=== PATIENT | female | born 1975 | race Caucasian/White ===

== ENCOUNTER 2021-05-04 10:02 | Emergency (ER) | payer MEDICARE, SELFPAY ==
[2021-05-04] VITALS (7 sets, daily range): BP systolic 100–137; BP diastolic 60–91; PULSE 82–95; RESP 16–22; TEMP 36.8–38.6; O2SAT 97–98; BMI 24.7
--- NOTE | 2021-05-04 10:21 | CT_ITS ---
PROCEDURE: CT ABDOMEN PELVIS W CON CLINICAL INDICATION: RLQ abd pain, fever COMPARISON: No exams were available for comparison TECHNIQUE: IV Contrast: 75ML Isovue 370 Oral Contrast None Axial images obtained with sagittal and coronal reformats. All CT scans at the facility use one or more dose reduction, viz: automated exposure control, ma/kV adjustment per patient size (including targeted exams where dose is matched to indication, i.e. head), or iterative reconstruction technique. FINDINGS: Lung bases are normal. Minimal diffuse fatty infiltration of the liver. No focal liver or splenic lesion. Gallbladder pancreas and adrenal glands are normal. There are mild inflammatory changes and a small focus of low-attenuation associated with the upper pole of the left kidney suggesting changes of left pyelonephritis. Repeat CT abdomen in 1 month is recommended to ensure resolution. Right kidney is normal. There is no upper abdominal lymphadenopathy. Minimal calcification of the abdominal aorta without aneurysm. Appendix is normal. No distended large or small bowel or bowel wall thickening. 2.5 centimeter left adnexal cyst. No free intraperitoneal air or fluid in the abdomen or pelvis. Bladder is normal. No inguinal or femoral hernia. No enlarged iliac or inguinal chain lymph nodes. No acute bony abnormality. Mild degenerative change of the lower lumbar spine is present. Moderate amount of stool noted in the colon. IMPRESSION: Mild inflammatory changes and small focus of low-attenuation associated with the upper pole the left kidney suggesting changes of mild left pyelonephritis. Repeat CT abdomen in 1 month is recommended to ensure resolution. Normal appendix. No free intraperitoneal air or fluid. Minimal diffuse fatty infiltration of the liver. 2.5 centimeter left adnexal cyst. Moderate amount of stool in the colon. Dictated by: Sabino Bonds 05/04/2021 11:47 Sabino Bonds in [facility] 05/04/2021 11:47
--- NOTE | 2021-05-04 10:30 | HMH.EDABDPAI ---
ED Disposition Clinical Impression: Pyelonephritis, Gastroenteritis Disposition: Home, Self-Care Condition on Discharge: Good Instructions: DI for Acute Abdominal Pain Prescriptions: Cefdinir [Omnicef 300mg Capsule] 300 mg PO BID #14 cap Prescription Printed Referrals: Provider,Referral, [Primary Care Provider] - - Critical Care Critical Care Time: No Attestation: On 05/04/21, the high probability of a clinically significant, sudden or life threatening deterioration of the following system(s) required my full and direct attention, intervention and personal management. The time I documented below is in addition to time spent performing reported procedures but includes the following listed in this critical care notation. Medical Decision Making - Medical Records Medical records reviewed: Yes: I reviewed the patient's medical records. - Wade Inquiry Pt receiving controlled substance: No Vital Signs: 05/04/21 10:03 05/04/21 10:30 05/04/21 11:00 Temperature 101.5 F H Temperature Source Oral Pulse Rate 95 H 95 H Pulse Rate [Radial] 95 H Respiratory Rate 22 16 Blood Pressure 137/83 123/76 Blood Pressure [Right Arm] 124/91 H Blood Pressure Mean [Right Arm] 102 Blood Pressure Position Sitting Sitting Blood Pressure Position [Right Arm] Sitting 02 Sat by Pulse Oximetry 98 97 98 Oxygen Delivery Method Room Air Room Air Room Air 05/04/21 12:00 05/04/21 12:30 05/04/21 13:00 Temperature 98.3 F Temperature Source Pulse Rate 85 82 82 Pulse Rate [Radial] Respiratory Rate 16 16 16 Blood Pressure 111/60 100/62 L 110/64 Blood Pressure [Right Arm] Blood Pressure Mean [Right Arm] Blood Pressure Position Sitting Sitting Sitting Blood Pressure Position [Right Arm] 02 Sat by Pulse Oximetry 98 98 98 Oxygen Delivery Method Room Air Room Air Room Air 05/04/21 13:36 Temperature 98.3 F Temperature Source Oral Pulse Rate 83 Pulse Rate [Radial] Respiratory Rate 16 Blood Pressure 113/68 Blood Pressure [Right Arm] Blood Pressure Mean [Right Arm] Blood Pressure Position Sitting Blood Pressure Position [Right Arm] 02 Sat by Pulse Oximetry Oxygen Delivery Method Room Air - Lab Data Lab results reviewed: Yes: I reviewed the patient's lab results. Lab Results 05/04/21 10:15: WBC 15.4 H, RBC 4.95, Hgb 15.0, Hct 43.7, MCV 88.2, MCH 30.3, MCHC 34.3, RDW 12.5, Plt Count 276, MPV 8.0, Neut % (Auto) 81.8 H, Lymph % (Auto) 9.7 L, [place] % (Auto) 7.8, Eos % (Auto) 0.5, Baso % (Auto) 0.2, Neut # (Auto) 12.6 H, Lymph # (Auto) 1.5, [place] # (Auto) 1.2 H, Eos # (Auto) 0.1, Baso # (Auto) 0.0, Total Counted 100, Neutrophils % (Manual) 82 H, Lymphocytes % (Manual) 9 L, Monocytes % (Manual) 9, Platelet Estimate Normal, RBC Morphology Normal 05/04/21 10:15: Sodium 136, Potassium 3.2 L, Chloride 101, Carbon Dioxide 27, Anion Gap 11.2, BUN 4 L, Creatinine 0.80, Estimated Creat Clear 87, Estimated GFR 77, Est GFR ( Amer) 93, Glucose 86, Calcium 8.8, Total Bilirubin 0.5, AST 18, ALT 10 L, Alkaline Phosphatase 74, Total Protein 7.6, Albumin 4.5, Globulin 3.1, Albumin/Globulin Ratio 1.5 05/04/21 10:15: Lipase 68 05/04/21 11:00: Urine Color Yellow, Urine Appearance Sl cloudy, Urine pH 6.5, Ur Specific [place] 1.025, Urine Protein Negative, Urine Glucose (UA) Negative, Urine Ketones Negative, Urine Blood Trace-i, Urine Nitrate Positive, Urine Bilirubin Negative, Urine Urobilinogen 0.2, Ur Leukocyte Esterase Negative, Urine RBC 3-5, Urine WBC None, Ur Squamous Epith Cells None, Urine Bacteria None 05/04/21 11:00: Urine HCG, Qual Negative Result diagrams: 05/04/21 10:15 05/04/21 10:15 Orders (Tests/Meds): ED MEDICATIONS Discontinued Medications Generic Name Dose Route Start Last Admin Trade Name Freq PRN Reason Stop Dose Admin Sodium Chloride 1,000 mls @ 999 mls/hr 05/04/21 10:30 Sod Chlor 0.9% 1000ml Bag IV 05/04/21 11:30 .Q1H1M LETITIA Sodium Chloride 1,000 mls @ 500 mls/hr
[2021-05-04 10:41] LABS: Basophils % 0.2 % (0.1-2.0); Eosinophils # 0.1 K/mm3 (0.0-0.4); Eosinophils % 0.5 % (0.1-12.0); Hematocrit 43.7 % (37.0-47.0); Lymphocytes # 1.5 K/mm3 (0.7-4.5); Lymphocytes % 9.7 % (10-50); Mean Corpuscular HGB Conc 34.3 g/dL (31.8-35.4); Mean Corpuscular Hemoglobin 30.3 pg (27.0-31.2); Mean Corpuscular Volume 88.2 fl (81-99); Monocytes # 1.2 K/mm3 (0.1-1.0); Monocytes % 7.8 % (1.7-9.3); Neutrophils # 12.6 K/mm3 (1.8-7.8); Neutrophils % 81.8 % (37.0-80.0); Platelet Count 276 K/mm3 (142-424); Red Blood Count 4.95 M/mm3 (4.20-5.40); Red Cell Distribution Width 12.5 % (11.5-17.5); White Blood Count 15.4 K/mm3 (4.8-10.8)
[2021-05-04 10:43] LABS: MANUAL DIFFERENTIAL MANUAL DIFFERENTIAL (MANUAL DIFF)
[2021-05-04 10:50] LABS: Chloride 101 mmol/L (98-107); Potassium 3.2 mmoL/L (3.5-5.1); Sodium 136 mmol/L (136-145)
[2021-05-04 10:52] LABS: Alanine Aminotransferase 10 U/L (12-78); Alkaline Phosphatase 74 U/L (38-126); Anion Gap 11.2 mEq/L (5-15); Aspartate Amino Transferase 18 U/L (14-36); Bilirubin,Total 0.5 mg/dl (0.2-1.3); Blood Urea Nitrogen 4 mg/dl (7-17); Carbon Dioxide 27 mmol/L (22.0-30.0); Creatinine Clearance Estimated 87 mL/min (50-200); Estimated Glomerular Filt Rate 77 ml/min (>60); GFR (African American) 93 ML/MIN (>60)
[2021-05-04 10:53] LABS: Albumin Level 4.5 g/dl (3.5-5.0); Albumin/Globulin Ratio 1.5 (1.1-1.8); Calcium 8.8 mg/dl (8.4-10.2); Globulin 3.1 g/dL (1.3-3.2); Glucose 86 mg/dl (74-100); Lipase 68 U/L (23-300); Total Protein,Serum 7.6 g/dl (6.3-8.2)
[2021-05-04 11:01] LABS: Microscopic, Urine URINE MICROSCOPIC (MICROSCOPIC)
[2021-05-04 11:11] LABS: Lymphocytes % 9 % (10-50); Monocytes % 9 % (2-9); Neutrophils % 82 % (42-76); Total Cells Counted 100
[2021-05-04 11:12] LABS: Platelet Estimate Normal; RBC Morphology Normal
[2021-05-04 11:25] LABS: Appearance,Urine SL CLOUDY (Clear); Bilirubin,Urine Negative (Negative); Blood, Urine TRACE-I (Negative); Color,Urine YELLOW (Yellow); Glucose,Urine (UA) Negative (Negative); Ketones,Urine Negative (Negative); Leukocyte Esterase,Urine Negative (Negative); Nitrate,Urine POSITIVE (Negative); PH,Urine 6.5 (5.0-8.5); Protein,Urine Negative (Negative); Specific Gravity, Urine 1.025 (1.005-1.030); Urobilinogen,Urine 0.2 EU/dl (0.2)
[2021-05-04 11:28] LABS: Urine Pregnancy, HCG Qual. Negative (Negative)
== END 2021-05-04 13:38 | disposition home or self-care (01) ==
PROVIDERS: Emergency Provider Emergency Medicine
DX: N12 Tubulo-interstitial nephritis, not specified as acute or chronic (principal); K52.9 Noninfective gastroenteritis and colitis, unspecified
CPT/HCPCS: 74177; 80053; 81001; 81025; 83690; 85007; 85025; 96365; 96375; 99283; J2405; Q9967

== ENCOUNTER → 2021-05-07 13:33 | Outpatient (CLI) | payer MEDICARE, SELFPAY ==
--- NOTE | 2021-05-07 13:33 | US_ITS ---
PROCEDURE: US TRANSVAGINAL CLINICAL INDICATION: pelvic pain COMPARISON: No exams were available for comparison FINDINGS: UTERUS: 9 cm x 5cmx 4cm with a combined endometrial thickness of 9.6mm LEFT OVARY: [id number] with a volume of 16.1ml. RIGHT OVARY: 2cmx [id number] with a volume of 5.8ml. 3.5 centimeter simple cyst on the left ovary. Normal vascular flow to both ovaries. Right ovary is normal. No free fluid in the posterior cul-de-sac or pelvis. Single small cervical nabothian cyst. 2-3 centimeter fundal uterine fibroid is present. IMPRESSION: 2-3 centimeter fundal uterine fibroid. 3.5 centimeter simple appearing left ovarian cyst. Single small cervical nabothian cyst. Dictated by: Sabino Bonds MD 05/07/2021 16:18 Sabino Bonds MD in [facility] 05/07/2021 16:18
== END ==
LOC: RAD 13:33
PROVIDERS: PCP Emergency Medicine; Visit Provider Obstetrics & Gynecology
DX: R10.9 Unspecified abdominal pain (principal); R10.2 Pelvic and perineal pain
CPT/HCPCS: 76830

== ENCOUNTER → 2021-06-08 09:41 | Outpatient (CLI) | payer MEDICARE, SELFPAY ==
--- NOTE | 2021-06-08 09:41 | CT_ITS ---
PROCEDURE: CT ABDOMEN PELVIS W CON CLINICAL INDICATION: pyelonephritis COMPARISON: CT CT ABDOMEN PELVIS W CON from 05/04/2021 TECHNIQUE: 75 mL of Isovue 370 was administered. Axial images obtained with sagittal and coronal reformats. All CT scans at the facility use one or more dose reduction, viz: automated exposure control, ma/kV adjustment per patient size (including targeted exams where dose is matched to indication, i.e. head), or iterative reconstruction technique. FINDINGS: LOWER THORAX: Unremarkable HEPATOBILIARY: Liver: No focal hepatic lesions. Gallbladder: The gallbladder is unremarkable Biliary: No intrahepatic or extrahepatic ductal dilation. PANCREAS: No focal masses or ductal dilatation. SPLEEN:No splenomegaly. ADRENALS:No adrenal nodules. KIDNEYS/URETERS/BLADDER: No hydronephrosis, stones, or solid mass lesions are seen in the visualized portions of the kidneys.There is minor cortical irregularity noted in the superior pole of the left kidney, may represent minor scarring. Bilateral renal parenchymal enhancement is symmetric and within normal limits. PERITONEUM / RETROPERITONEUM: No free air or fluid. Peritoneum LYMPH NODES: No free air or fluid. GI TRACT: No distention, wall thickening, or inflammatory stranding. Minor fecal retention of the colon is noted.Appendix is normal VASCULAR: Minor atherosclerotic vascular calcification is noted. The aorta is normal in caliber, without evidence of abdominal aortic aneurysm or dissection. ABDOMINAL WALL: Intact SOFT TISSUES: Unremarkable. BONES: Unremarkable. IMPRESSION: Minor cortical scarring in the left kidney. Otherwise unremarkable kidneys. No abnormal enhancement is noted. No acute intra-abdominal abnormality. Dictated by: Jazzy Mcmahan 06/08/2021 10:29 Jazzy Mcmahan in [facility] 06/08/2021 10:29
== END ==
LOC: RAD 09:41
PROVIDERS: PCP Emergency Medicine; Visit Provider Obstetrics & Gynecology
DX: N12 Tubulo-interstitial nephritis, not specified as acute or chronic (principal)
CPT/HCPCS: 74177; Q9967

== ENCOUNTER → 2021-07-08 08:48 | Outpatient (CLI) | payer MEDICARE, SELFPAY ==
[2021-07-08 09:01] LABS: Basophils # 0.1 K/mm3 (0-0.2); Basophils % 0.9 % (0.1-2.0); Eosinophils # 0.3 K/mm3 (0.0-0.4); Eosinophils % 2.9 % (0.1-12.0); Hematocrit 40.4 % (37.0-47.0); Hemoglobin 13.6 g/dL (12.2-16.2); Lymphocytes # 3.4 K/mm3 (0.7-4.5); Lymphocytes % 33.2 % (10-50); Mean Corpuscular HGB Conc 33.8 g/dL (31.8-35.4); Mean Corpuscular Hemoglobin 29.5 pg (27.0-31.2); Mean Corpuscular Volume 87.4 fl (81-99); Mean Platelet Volume 8.7 fl (7.4-10.4); Monocytes # 0.5 K/mm3 (0.1-1.0); Monocytes % 5.2 % (1.7-9.3); Neutrophils # 5.9 K/mm3 (1.8-7.8); Neutrophils % 57.8 % (37.0-80.0); Platelet Count 285 K/mm3 (142-424); Red Blood Count 4.62 M/mm3 (4.20-5.40); Red Cell Distribution Width 13.5 % (11.5-17.5); White Blood Count 10.2 K/mm3 (4.8-10.8)
[2021-07-08 09:39] LABS: HCG,Quantitative < 2 mIU/ml (0-5.42)
== END ==
PROVIDERS: Visit Provider Obstetrics & Gynecology
DX: Z34.90 Encounter for supervision of normal pregnancy, unspecified, unspecified trimester (principal); S01.81XA Laceration without foreign body of other part of head, initial encounter
CPT/HCPCS: 36415; 84702; 85025

== ENCOUNTER 2021-07-16 14:51 | Emergency (ER) | payer MEDICARE, SELFPAY ==
[2021-07-16 16:30] VITALS: BP 137/75; PULSE 72; RESP 20; TEMP 36.7; O2SAT 98; BMI 24.7
--- NOTE | 2021-07-16 17:14 | HMH.EDUTC ---
[facility] [place] Disposition Clinical Impression: Viral syndrome, Exposure to COVID-19 virus Disposition: Home, Self-Care Condition on Discharge: Good Instructions: DI for COVID-19 (Suspected or Confirmed ), Preventing the Spread of Coronavirus Discharge Instructions Additional Instructions: Drink plenty of fluids. Take tylenol for pain or fever. Return if you begin to have difficulty breathing. Follow up with your regular doctor. GO TO THE ER FOR ANY WORSENING SYMPTOMS Quarantine until you know the results of your covid-19 test. If it is positive, the health department should call you and give you further instructions about your length of Quarantine and other things. Notify your school or workplace of your results and follow their instructions regarding return to work/school. Prescriptions: Promethazine/Dextromethorphan [Promethazine-Dm Syrup] 5 ml PO Q6HP PRN #240 syrup PRN Reason: Cough Transmission Status: Received by [facility] Ondansetron [Zofran 4mg ODT] 4 mg PO Q8HP PRN #20 tab.rapdis PRN Reason: Nausea Transmission Status: Received by [facility] Azithromycin [Z-Román 250mg Tab*] 250 mg PO UD DOSE PK #6 tab Transmission Status: Received by [facility] Referrals: Woo Stephen MD [Primary Care Provider] - Forms: Work/School Release Time of Disposition: 17:42 Medical Decision Making - Medical Records Medical records reviewed: No: I reviewed the patient's medical records. - Wade Inquiry Pt receiving controlled substance: No Vital Signs: 07/16/21 16:30 07/16/21 17:28 Temperature 98.0 F 98.0 F Temperature Source Oral Pulse Rate 72 Pulse Rate [Right Brachial] 72 Respiratory Rate 20 20 Blood Pressure 137/75 Blood Pressure [Right Arm] 137/75 Blood Pressure Mean [Right Arm] 95 Blood Pressure Source [Right Arm] Automatic Cuff Blood Pressure Position [Right Arm] Sitting 02 Sat by Pulse Oximetry 98 Oxygen Delivery Method Room Air - Lab Data Lab results reviewed: Yes: I reviewed the patient's lab results. Lab Results 07/16/21 17:21: Strep Scn Rapid Clinic Negative Orders (Tests/Meds): ORDERS Category Date Time Status Strep Screen Confirmation Stat Micro 07/16/21 17:21 Received [facility] [place] HPI - General Stated complaint: covid exposure, symptoms Time Seen by Provider: 07/16/21 17:14 Mode of Arrival: Ambulatory Source of Information: Patient Limitations: No Limitations Description of Symptoms (Recalled from Triage Doc. by RN): PATIENT C/O VOMITING, DIARRHEA, CHILLS, HEADACHE, AND WEAKNESS X 2 DAYS. EXPOSURE TO COVID HEENT Symptoms (Recalled from RN notes): Yes Resp Symptoms (Recalled from RN notes): No Skin Symptoms (Recalled from RN notes): No MS Symptoms (Recalled from RN notes): No Functional Status (Recalled from RN notes): WNL - History of Present Illness Provider Complaint: She reports that for the past 2 days she has felt very bad, had body aches, cough, congestion, and a head ache. She has not been vaccinated against covid-19. - Related Data Previous Rx's Medication Instructions Recorded prenat.vits,jose,vcq-umvs-exugc 1 tab PO DAILY #30 tab 07/08/21 Azithromycin [Z-Román 250mg Tab*] 250 mg PO UD DOSE PK #6 tab 07/16/21 Ondansetron [Zofran 4mg ODT] 4 mg PO Q8HP PRN #20 tab.rapdis 07/16/21 Promethazine/Dextromethorphan 5 ml PO Q6HP PRN #240 syrup 07/16/21 [Promethazine-Dm Syrup] Allergies Allergy/AdvReac Type Severity Reaction Status Date / Time No Known Allergies Allergy Verified 07/16/21 16:54 - Worker's Comp Is this a Worker's Comp case?: No [facility] History - Hepatitis A Screen Drug use history?: No High risk sexual behaviors?: No History of sexually transmitted infection?: No Currently employed?: No Childcare worker?: No Do you have indoor plumbing?: Yes Do you have electricity?: Yes Attestation statement:: This patient has been screened for Hepatitis A risk factors. I have reviewed
[2021-07-16 17:28] VITALS: BP 137/75; PULSE 72; RESP 20; TEMP 36.7; O2SAT 98
[2021-07-16 17:49] LABS: UTC Strep Screen (Rapid) Negative (Negative)
--- NOTE | 2021-07-17 10:20 | PC.NURSE ---
relayed message to patient that she is positive
== END 2021-07-16 17:56 | disposition home or self-care (01) ==
PROVIDERS: Emergency Provider Nurse Practitioner Family; PCP Emergency Medicine
DX: U07.1 COVID-19 (principal); Z87.891 Personal history of nicotine dependence
CPT/HCPCS: G0463; 87880; 99203; U0003

== ENCOUNTER → 2021-09-17 08:39 | Outpatient (CLI) | payer MEDICARE, SELFPAY ==
--- NOTE | 2021-09-17 08:39 | US_ITS ---
PROCEDURE: US TRANSVAGINAL CLINICAL INDICATION: repeat Heavy bleeding COMPARISON: US US TRANSVAGINAL from 05/07/[address] ABDOMEN PELVIS W CON from 06/08/2021 FINDINGS: UTERUS: 9cm x 6cmx 4cm with a combined endometrial thickness of 14mm. There is some heterogeneous echogenicity in the fundus of the uterus. LEFT OVARY: 2dfh3gvj8.5cm with a volume of 18.9ml. 3 x 2 cm simple appearing left ovarian cyst. RIGHT OVARY: [id number] with a volume of 5ml. No cul-de-sac fluid. IMPRESSION: Thickened endometrium at 14 mm. There is some heterogeneous echogenicity in the fundus of the uterus possibly due to fibroid involvement. 3 cm simple appearing left ovarian cyst not significantly changed. Dictated by: Nicholas Vera MD 09/20/2021 08:24 Nicholas Vera MD in [facility] 09/20/2021 08:24
== END ==
LOC: RAD 08:39
PROVIDERS: PCP Emergency Medicine; Visit Provider Obstetrics & Gynecology
DX: D25.9 Leiomyoma of uterus, unspecified (principal); N83.209 Unspecified ovarian cyst, unspecified side
CPT/HCPCS: 76830

== ENCOUNTER → 2021-10-06 08:24 | Outpatient (CLI) | payer MEDICARE, SELFPAY | PROVIDERS: PCP Emergency Medicine; Visit Provider Nurse Practitioner | DX: Z20.822 Contact with and (suspected) exposure to COVID-19 (principal) | CPT/HCPCS: C9803; U0003; U0005 ==

== ENCOUNTER → 2021-10-23 13:03 | Outpatient (CLI) | payer MEDICARE, SELFPAY ==
[2021-10-23 13:30] LABS: Basophils # 0.1 K/mm3 (0-0.2); Basophils % 1.2 % (0.1-2.0); Eosinophils # 0.2 K/mm3 (0.0-0.4); Eosinophils % 3.1 % (0.1-12.0); Hematocrit 28.6 % (37.0-47.0); Hemoglobin 8.1 g/dL (12.2-16.2); Lymphocytes # 1.7 K/mm3 (0.7-4.5); Mean Corpuscular HGB Conc 28.4 g/dL (31.8-35.4); Mean Corpuscular Hemoglobin 22.8 pg (27.0-31.2); Mean Corpuscular Volume 80.5 fl (81-99); Mean Platelet Volume 9.2 fl (7.4-10.4); Monocytes # 0.6 K/mm3 (0.1-1.0); Monocytes % 10.2 % (1.7-9.3); Neutrophils # 3.6 K/mm3 (1.8-7.8); Neutrophils % 58.5 % (37.0-80.0); Platelet Count 365 K/mm3 (142-424); Red Blood Count 3.56 M/mm3 (4.20-5.40); Red Cell Distribution Width 14.2 % (11.5-17.5); White Blood Count 6.2 K/mm3 (4.8-10.8)
[2021-10-23 13:44] LABS: Urine Pregnancy, HCG Qual. Negative (Negative)
[2021-10-23 15:10] LABS: Chloride 107 mmol/L (98-107); Potassium 4.2 mmoL/L (3.5-5.1); Sodium 140 mmol/L (136-145)
[2021-10-23 15:13] LABS: Alanine Aminotransferase 8 U/L (12-78); Albumin/Globulin Ratio 1.7 (1.1-1.8); Alkaline Phosphatase 65 U/L (38-126); Anion Gap 11.2 mEq/L (5-15); Aspartate Amino Transferase 20 U/L (14-36); Blood Urea Nitrogen 9 mg/dl (7-17); Carbon Dioxide 26 mmol/L (22.0-30.0); Estimated Glomerular Filt Rate 77 ml/min (>60); GFR (African American) 93 ML/MIN (>60); Globulin 2.4 g/dL (1.3-3.2); Total Protein,Serum 6.4 g/dl (6.3-8.2)
[2021-10-23 15:14] LABS: Calcium 8.7 mg/dl (8.4-10.2); Glucose 90 mg/dl (74-100)
[2021-10-23 15:18] LABS: Bilirubin,Total 0.1 mg/dl (0.2-1.3)
== END ==
PROVIDERS: Visit Provider Obstetrics & Gynecology
DX: Z01.812 Encounter for preprocedural laboratory examination (principal); N93.8 Other specified abnormal uterine and vaginal bleeding
CPT/HCPCS: 36415; 80053; 81025; 85025; C9803; U0003; U0005

== ENCOUNTER 2021-10-25 07:16 | Day surgery (SDC) | payer MEDICARE, SELFPAY ==
[2021-10-22 08:02] VITALS: BMI 24.7
[2021-10-25] VITALS (10 sets, daily range): BP systolic 98–121; BP diastolic 52–78; PULSE 76–93; RESP 16–18; TEMP 36.3–36.8; O2SAT 92–98
--- NOTE | 2021-10-25 06:48 | SUR.PREOP ---
Notified Khurram ARELLANO r/t patients H&H. Debra stated okay to proceed with surgery.
--- NOTE | 2021-10-25 08:20 | HMH.ANESCL ---
[facility] Anesthesia Checklist - Patient Identification Patient Identification: Arm Band, Verbal (Name & ) - Structural Data Admitted From: Home Planned Operative Procedure/s: Hysteroscopy Consent for Planned Operative Procedure(s) Verified: Yes Verified Documents: Surgical Consent - NPO Status Verified Time NPO: 00:00 - Chart Verification Results Verified: CBC, HCG - Additional verifications Anesthesia Reactions: No Hx Blood Transfusions: No Blood Transfusion Reaction: No - Cardiovascular Assessment Heart Sounds: S1 & S2 - Airway Assessment C-Spine Mobility Assessed: Yes TMJ Mobility Assessed: Yes Dentition: Dentures-good fit - Neurological Assessment Level of Consciousness: Awake, Alert, Appropriate - Anesthesia Plan Anesthesia Risk discussed: Yes ASA Class: II Anesthesia Type: General [facility] History I have reviewed the patient's past medical history: Yes Medical History: Denies:: Cancer, Diabetes Mellitus Type 1, Diabetes Mellitus Type 2, Internal Pacemaker, MRSA, Seizures *Have you ever received a pneumonia vaccine?: No *Have you received a flu vaccine this season?: Yes Other Medical History: Denies: Blood Transfusion Reaction Anesthesia experience/problems:: none Other Surgeries: No: Pacemaker Amputation: No Fractures: No - *Social History Last grade of school completed: High school graduate Smoking Status: Current every day smoker Tobacco Type: cigarettes # Packs/Day (cigarettes): 1 Alcohol Intake: never Substance Use Type: denies use *Occupational Status:: unemployed Housing: house Household Members: significant other, children *Travel in the last 8 weeks: None Family Hx:: Cancer, Heart Attack, Stroke
--- NOTE | 2021-10-25 09:42 | HMH.ANESI ---
[facility] Anesthesia Record Part I Intake, IV Amount: 1,000 Estimated blood loss (mL): 10 Urine output (mL): 0 Blood Pressure: 98/68 SaO2: 95 Pulse Rate: 77 Respiratory Rate: 16 Temperature: 98 F Patient is:: Drowsy, Stable Stable to PACU at:: 09:40
--- NOTE | 2021-10-25 10:12 | SUR.PHASEI ---
1011- detailed report given to caden thompson in post op. Pt left in stable condition at this time
--- NOTE | 2021-10-25 11:07 | P.PN_ITS ---
[facility] Anesthesia Record Part II Discharge Time: 10:10 Destination: Surgical Day Care (OP Surgery) PACU nurse assessment reviewed?: Yes Patient Condition:: Good Anesthesia Complications:: None Swallowing reflex intact?: Yes Cyanosis?: No Blood Pressure: 116/70 Pulse Rate: 77 Temperature: 97.8 F Mental Status: Alert & Oriented Pain level:: 0 Nausea and/or vomitting:: None Intake, IV Amount: 0
--- NOTE | 2021-10-25 13:00 | HMH.OPNOTE ---
Date of procedure: 10/25/21 Pre-op Diagnosis:: Heavy menstrual bleeding Dysfunctional uterine bleeding Post-op Diagnosis:: same Procedure performed:: D&C Hysteroscopy with Myosure polypectomy Surgeon:: Moira Mcnally MD TOE CLOSING MACHINE TENDER:: Other Anesthesia: GETA Estimated blood loss (mL): 5 Operative findings:: diffuse shaggy endometrium thoughout uterine cavity anterior cavitary lesion consistent with endometrial polyp Operative note:: The patient was taken to the OR and general anesthesia administered without difficulty. She was prepped/draped in lithotomy position. The cervix was dilated and hysteroscopic evaluation performed. Diffuse, shaggy endometrium was visualized within the endometrial cavity. A small lesion consistent with an endometrial polyp was noted on the anterior cavity wall. The Myosure was used to excise this lesion and to sample endometrial tissue throughout the cavity. Once this was completed, all instruments were removed from her uterus and vagina. She was taken out of lithotomy position, awakened from anesthesia and taken to the PACU in stable condition. All sponge, needle & instrument counts correct. EBL 5cc. Condition: stable Disposition: PACU Specimens:: endometrial curettings Complications:: none
== END 2021-10-25 10:41 | disposition home or self-care (01) ==
LOC: OR 07:18
PROVIDERS: PCP Emergency Medicine; Visit Provider Obstetrics & Gynecology
DX: N93.8 Other specified abnormal uterine and vaginal bleeding (principal); R93.89 Abnormal findings on diagnostic imaging of other specified body structures; N84.0 Polyp of corpus uteri; Z72.0 Tobacco use; Z80.9 Family history of malignant neoplasm, unspecified; Z82.3 Family history of stroke
CPT/HCPCS: 58563; 88305; 96374; J2405

== ENCOUNTER 2022-07-18 17:28 | Emergency (ER) | payer MEDICARE, SELFPAY ==
[2022-07-18 19:25] VITALS: BP 131/86; PULSE 90; RESP 22; TEMP 36.8; O2SAT 97; BMI 26.5
--- NOTE | 2022-07-18 20:00 | EXP.UTC ---
Discharge Plan Disposition Patient Disposition: Home, Self-Care Condition: Good Prescriptions Prescriptions: New ondansetron HCl 4 mg tablet 4 mg PO Q8H PRN (Reason: Nausea And Vomiting) 4 Days Qty: 12 0RF No Action prenat.vits,jose,bwh-mfqb-bqumr 1 EACH tablet 1 tab PO DAILY Referrals Follow up/Referrals: Woo Stephen MD [Primary Care Provider] - See instructions Activity Restrictions/Add. Instructions Additional Instructions/Restrictions: *Monitor Temp, Over the counter Motrin or Tylenol as directed/as needed Tylenol every 4 hours and Motrin every 6 hours (as long as your family doctor has told you that you can take it) for fever or pain. and straight to ER if unable to lower temp less than 101.0 after medication given *Warm salt water gargles may help to soothe the throat *Throat Lozenges? *Warm fluids like tea with honey may help to soothe the throat? *Sleep elevated *Humidifier/Vaporizer Follow up IMMEDIATELY for new or worsening symptoms or no Noticeable improvement over the next 48-72 hours. 911 for difficulty breathing or swallowing You were tested for today for COVID19 your test result should be back in the next 24-48 hours, you may may check your results on the [facility] Make sure to take your Vitamins Vit. C Vit D and Zinc if you can take them Clinical Impressions Clinical Impression: Viral syndrome, Encounter for laboratory testing for COVID-19 virus Stand Alone Forms Stand Alone Forms: Work/School Release Instructions Patient Instructions: DI for Viral Upper Respiratory Infection -- Adult, Coronavirus Disease 2019, Preventing the Spread of Coronavirus Discharge Instructions Discharge ED Provider: Morenita Dubois [facility] [place] [place] HPI General Stated complaint: covid test Mode of Arrival: Ambulatory Source of Information: Patient Limitations: No Limitations Time Seen by Provider: 07/18/22 20:00 Description of Symptoms (Recalled from Triage Doc. by RN): PATIENT C/O COUGH AND BODY ACHES SINCE YESTERDAY HEENT Symptoms (Recalled from RN notes): Yes Resp Symptoms (Recalled from RN notes): Yes Skin Symptoms (Recalled from RN notes): No MS Symptoms (Recalled from RN notes): No Functional Status (Recalled from RN notes): WNL History of Present Illness Provider Complaint: Patient states that several people at work have tested positive for COVID state that she has been having body aches, chills, n/v and headaches that started yesterday and has continued throughout today States that this evening she came in to get tested due to still having symptoms Related Data Home Medications Medication Instructions Recorded Confirmed prenat.vits,jose,uvk-bumu-eelkn 1 tab PO DAILY Supplement 10/22/21 10/25/21 Previous Rx's Medication Instructions Recorded ondansetron HCl 4 mg tablet 4 mg PO Q8H PRN Nausea And 07/18/22 Vomiting 4 days #12 tabs Allergies Allergy/AdvReac Type Severity Reaction Status Date / Time No Known Allergies Allergy Verified 10/25/21 07:31 Worker's Comp Is this a Worker's Comp case?: No PFSH PFSH Social History Smoking Status: Current every day smoker tobacco type: cigarettes packs per day: 1 second hand exposure: No alcohol intake: never substance use type: denies use current occupational status: other Travel in the last 8 weeks: None household members: significant other and children housing: house current occupational exposures/hazards: No caffeine: Yes ROS Obtained: Yes All systems reviewed & no additional complaints except as documented and Yes Systems reviewed as appropriate & no additional complaints except as documented Constitutional Constitutional: Reports system reviewed and no additional complaints, except as documented, Reports as per HPI, Reports body ache, Reports chills, Reports fatigue, Reports fever(s) and Reports headache(s) ENT Ears, Nose, Mouth, and Throat: Reports system reviewed and no add
[2022-07-18 20:05] VITALS: BP 131/86; PULSE 90; RESP 22; TEMP 36.8; O2SAT 97
== END 2022-07-18 20:10 | disposition home or self-care (01) ==
PROVIDERS: Emergency Provider Nurse Practitioner; PCP Emergency Medicine
DX: M79.10 Myalgia, unspecified site (principal); R05.9 Cough, unspecified; R68.83 Chills (without fever); R11.2 Nausea with vomiting, unspecified; R51.9 Headache, unspecified; Z20.822 Contact with and (suspected) exposure to COVID-19
CPT/HCPCS: 99212; C9803; G0463; U0003; U0005

== ENCOUNTER 2022-10-30 08:25 | Emergency (ER) | payer MEDICARE, SELFPAY ==
[2022-10-30] VITALS (9 sets, daily range): BP systolic 102–152; BP diastolic 46–97; PULSE 78–131; RESP 18–28; TEMP 37.6; O2SAT 92–100; BMI 26.5
--- NOTE | 2022-10-30 08:21 | ECG_ITS ---
APPROVED REPORT Exam: Resting ECG HR:109 bpm ECG Measurements Heart Rate 109 AXES NH 177 P 67 QRSd 80 QRS 94 QT 328 T 68 QTc 392 Conclusion SINUS TACHYCARDIA BORDERLINE RIGHT AXIS DEVIATION [QRS AXIS > 90] MINIMAL ST DEPRESSION [0.025+ mV ST DEPRESSION] ABNORMAL RHYTHM ECG UNCONFIRMED REPORT Electronically signed by : Walker Bradshaw MD 10/31/2022 19:59:40
--- NOTE | 2022-10-30 08:27 | XR_ITS ---
PROCEDURE INFORMATION: Exam: XR Chest Exam date and time: 10/30/2022 8:42 AM Age: 47 years old Clinical indication: Shortness of breath; Additional info: SOA TECHNIQUE: Imaging protocol: Radiologic exam of the chest. Views: 1 view. COMPARISON: CT ABDOMEN PELVIS W CON 06/08/2021 9:51 AM FINDINGS: Lungs: Unremarkable. No consolidation. Pleural spaces: Unremarkable. No pleural effusion. No pneumothorax. Heart/Mediastinum: Unremarkable. No cardiomegaly. Bones/joints: Unremarkable. IMPRESSION: No acute findings.
--- NOTE | 2022-10-30 08:29 | PC.NURSE ---
pt significant other stood up while doing the EKG and ask if that was allowed for the male doctor to be present with pt shirt up to perform a EKG for her chest pain. Instructed significant other that the male in the room was a twisting operator and medically we have them present. Ask the pt if that was ok for the male to be in the room. Pt verbalized that was ok. Continued with EKG with pt consent with male twisting operator at .
[2022-10-30 08:35] LABS: Coronavirus 19, PCR Not Detected (NotDetected); Influenza A, PCR Not Detected (NotDetected); Influenza B, PCR Not Detected (NotDetected)
--- NOTE | 2022-10-30 08:38 | HMH.EDGENADL ---
Discharge Plan Disposition Patient Disposition: Home, Self-Care Condition: Good Prescriptions Prescriptions: New doxycycline hyclate 100 mg capsule 100 mg PO BID 10 Days Qty: 20 0RF methylprednisolone [Medrol (Román)] 4 mg tablets,dose pack 4 mg PO DAILY Qty: 21 0RF ondansetron 4 mg tablet,disintegrating 4 mg PO Q8H PRN (Reason: nausea and vomiting) 4 Days Qty: 12 0RF Referrals Follow up/Referrals: Provider,Referral, MD [Referring] - See instructions Activity Restrictions/Add. Instructions Additional Instructions/Restrictions: You were evaluated in the emergency department today. At this time, we feel that your symptoms are due to pneumonia. Please product picker your prescriptions at the pharmacy. Use your inhaler every 4-6 hours as needed for wheezing and shortness of breath. Orally hydrate at home is much as possible. Return to the emergency department for any new or worsening symptoms. Follow-up with your primary care provider over the next 48 hours. Clinical Impressions Clinical Impression: Pneumonia Qualifiers: Pneumonia type: due to unspecified organism Laterality: left Lung location: upper lobe of lung Qualified Code(s): J18.9 - Pneumonia, unspecified organism Instructions Patient Instructions: Pneumonia-Adult Discharge ED Provider: Carly John General Adult HPI General Chief complaint: Chest Pain Stated complaint: chest pain Time Seen by Provider: 10/30/22 08:27 Mode of Arrival: Ambulatory Source of Information: Patient Limitations: No Limitations Description of Symptoms (Recalled from ER Triage Doc. by RN): c/o chest pain, cough, fever, SERRA and n/v for 3 days. Pt states the symptoms started with a SERRA and then the other symptoms followed. Pt took thermaflu around 1.30am and tylenol around 5am prior to arrival. History of Present Illness HPI narrative: This patient is a 47-year-old female who denies significant past medical history presented to the emergency department for evaluation of fever, headache, cough, nausea, vomiting, chest pain, and poor appetite. She reports that she initially developed a headache 3 days ago, and the other symptoms have followed.. She states that the chest pain has been intermittent and sharp on the left side of her chest, and nothing seems to make it better or worse. She took TheraFlu without significant improvement. She is also complaining of epigastric abdominal pain. She has noted that she has been wheezing. She is a smoker, she denies any history of respiratory issues and does not use inhalers. Related Data Previous Rx's Medication Instructions Recorded doxycycline hyclate 100 mg capsule 100 mg PO BID 10 days #20 caps 10/30/22 methylprednisolone 4 mg tablets in 4 mg PO DAILY #21 tabs 10/30/22 a dose pack (Medrol (Román)) ondansetron 4 mg disintegrating 4 mg PO Q8H PRN nausea and 10/30/22 tablet vomiting 4 days #12 tabs Allergies Allergy/AdvReac Type Severity Reaction Status Date / Time No Known Allergies Allergy Verified 10/25/21 07:31 [facility] Disclaimer: The information contained in this section may have been updated after the patient was seen, as this information can be updated by other users. Social History Smoking Status: Current every day smoker tobacco type: cigarettes packs per day: 1 second hand exposure: No alcohol intake: never substance use type: denies use current occupational status: other Travel in the last 8 weeks: None household members: significant other and children housing: house current occupational exposures/hazards: No caffeine: Yes ROS Obtained: Yes All systems reviewed & no additional complaints except as documented 14 point review of systems obtained and negative except as mentioned in HPI. Physical Exam General General appearance: alert and in no apparent distress Head Head exam: atraumatic and normocephalic Eye Eye exam: Present n
[2022-10-30 08:39] LABS: Basophils # 0.1 K/mm3 (0-0.2); Basophils % 0.9 % (0.1-2.0); Eosinophils # 0.2 K/mm3 (0.0-0.4); Eosinophils % 3.2 % (0.1-12.0); Hematocrit 34.3 % (37.0-47.0); Hemoglobin 10.5 g/dL (12.2-16.2); Lymphocytes # 1.2 K/mm3 (0.7-4.5); Lymphocytes % 17.6 % (10-50); Mean Corpuscular HGB Conc 30.8 g/dL (31.8-35.4); Mean Corpuscular Hemoglobin 20.4 pg (27.0-31.2); Mean Corpuscular Volume 66.4 fl (81-99); Mean Platelet Volume 8.1 fl (7.4-10.4); Monocytes # 0.4 K/mm3 (0.1-1.0); Monocytes % 5.9 % (1.7-9.3); Neutrophils # 5.1 K/mm3 (1.8-7.8); Neutrophils % 72.4 % (37.0-80.0); Platelet Count 386 K/mm3 (142-424); Red Blood Count 5.16 M/mm3 (4.20-5.40); Red Cell Distribution Width 16.7 % (11.5-17.5)
[2022-10-30 08:45] LABS: Chloride 106 mmol/L (98-107); Potassium 3.9 mmoL/L (3.5-5.1); Sodium 139 mmol/L (136-145)
[2022-10-30 08:47] LABS: Alanine Aminotransferase 15 U/L (12-78); Aspartate Amino Transferase 28 U/L (14-36); Blood Urea Nitrogen 9 mg/dl (7-17); Creatinine Clearance Estimated 104 mL/min (50-200); Estimated Glomerular Filt Rate 89 ml/min (>60); GFR (African American) 108 ML/MIN (>60)
[2022-10-30 08:48] LABS: Albumin Level 4.3 g/dl (3.5-5.0); Albumin/Globulin Ratio 1.4 (1.1-1.8); Alkaline Phosphatase 116 U/L (38-126); Anion Gap 10.9 mEq/L (5-15); Bilirubin,Total 0.2 mg/dl (0.2-1.3); Calcium 8.9 mg/dl (8.4-10.2); Carbon Dioxide 26 mmol/L (22.0-30.0); Glucose 93 mg/dl (74-100); Lipase 48 U/L (23-300); Total Protein,Serum 7.3 g/dl (6.3-8.2)
--- NOTE | 2022-10-30 08:53 | PC.NURSE ---
Significant other was stating that he thinks the pt has gallbladder issues, when the pt eats she throws up everything. Pt states if they go to [facility] to eat and then she will throw it up all the way home and she has pain that her gallbladder area. Pt states 20 years ago she was told she had sludge in her gallbladder but never had it checked since. MD mar
--- NOTE | 2022-10-30 08:55 | PC.NURSE ---
Pt placed on 2 L NC for 91 sat and feeling MD tray aware.
[2022-10-30 08:59] LABS: D-Dimer 0.95 ug/mL (0.0-0.5)
[2022-10-30 09:02] LABS: Troponin I < 0.01 ng/ml (0.00-0.034)
--- NOTE | 2022-10-30 09:16 | CT_ITS ---
PROCEDURE INFORMATION: Exam: CTA Chest With Contrast Exam date and time: 10/30/2022 9:31 AM Age: 47 years old Clinical indication: Shortness of breath; Additional info: SOA, elevated dimer TECHNIQUE: Imaging protocol: Computed tomographic angiography of the chest with contrast. 3D rendering (Not supervised by radiologist): MIP and/or 3D reconstructed images were created by the technologist. Radiation optimization: All CT scans at this facility use at least one of these dose optimization techniques: automated exposure control; mA and/or kV adjustment per patient size (includes targeted exams where dose is matched to clinical indication); or iterative reconstruction. Contrast material: ISOVUE; Contrast volume: 70 ml; Contrast route: INTRAVENOUS (IV); COMPARISON: CR XR CHEST PORTABLE 10/30/2022 8:42 AM FINDINGS: Pulmonary arteries: Negative for acute pulmonary embolism. Aorta: Unremarkable. No aortic aneurysm. No aortic dissection. Lungs: Bronchial wall thickening in the left upper lobe and right middle lobe, with some involvement of the left lower lobe. Patchy consolidation in the left upper lobe. Compatible with bronchitis/pneumonitis. Recommend follow-up to resolution. Pleural spaces: Unremarkable. No pneumothorax. No pleural effusion. Heart: Unremarkable. No cardiomegaly. No pericardial effusion. Lymph nodes: Mild mediastinal and hilar lymphadenopathy, likely reactive. Right paratracheal lymph node measures 1.2 cm in short axis. Bones/joints: Unremarkable. No acute fracture. Soft tissues: Unremarkable. Other findings: Previous granulomatous exposure. IMPRESSION: 1. Negative for acute pulmonary embolism. 2. Bronchial wall thickening in the left upper lobe and right middle lobe, with some involvement of the left lower lobe. Patchy consolidation in the left upper lobe. Compatible with bronchitis/pneumonitis. Recommend follow-up to resolution. 3. Mild mediastinal and hilar lymphadenopathy, likely reactive. Right paratracheal lymph node measures 1.2 cm in short axis.
--- NOTE | 2022-10-30 09:16 | CT_ITS ---
PROCEDURE INFORMATION: Exam: CT Abdomen With Contrast Exam date and time: 10/30/2022 9:31 AM Age: 47 years old Clinical indication: Abdominal pain; Generalized TECHNIQUE: Imaging protocol: Computed tomography of the abdomen with contrast. Radiation optimization: All CT scans at this facility use at least one of these dose optimization techniques: automated exposure control; mA and/or kV adjustment per patient size (includes targeted exams where dose is matched to clinical indication); or iterative reconstruction. Contrast material: ISOVUE; Contrast volume: 70 ml; Contrast route: IV; COMPARISON: CT ABDOMEN PELVIS W CON 06/08/2021 9:51 AM FINDINGS: Liver: Normal. No mass. Gallbladder and bile ducts: Normal. No calcified stones. No ductal dilation. Pancreas: Normal. No ductal dilation. Spleen: Normal. No splenomegaly. Adrenal glands: Normal. No mass. Kidneys and ureters: Normal. No hydronephrosis. Stomach and bowel: Visualized stomach and bowel are unremarkable. No obstruction. No mucosal thickening. Intraperitoneal space: Unremarkable. No free air. No significant fluid collection. Vasculature: Unremarkable. No abdominal aortic aneurysm. Lymph nodes: Unremarkable. No enlarged lymph nodes. Bones/joints: Unremarkable. No acute fracture. No dislocation. Soft tissues: Unremarkable. IMPRESSION: No acute findings.
[2022-10-30 09:51] LABS: Microscopic, Urine URINE MICROSCOPIC (MICROSCOPIC)
[2022-10-30 10:01] LABS: Appearance,Urine CLEAR (Clear); Blood, Urine Negative (Negative); Color,Urine AMBER (Yellow); Glucose,Urine (UA) Negative (Negative); Ketones,Urine Negative (Negative); Leukocyte Esterase,Urine Negative (Negative); Nitrate,Urine Negative (Negative); Protein,Urine TRACE (Negative); Specific Gravity, Urine 1.025 (1.005-1.030)
[2022-10-30 10:20] LABS: Bacteria,Urine Trace /lpf; Bilirubin,Urine 1+ (Negative); WBC,Urine Occasional #/hpf (0-3)
--- NOTE | 2022-10-30 10:20 | PC.NURSE ---
respiratory contacted about juanito
--- NOTE | 2022-10-30 10:53 | PC.NURSE ---
pt given soft drink
--- NOTE | 2022-10-30 11:31 | PC.NURSE ---
pt tolerating room of 97 oxygen sat
== END 2022-10-30 12:03 | disposition home or self-care (01) ==
PROVIDERS: Emergency Provider Emergency Medicine; PCP Emergency Medicine
DX: J18.9 Pneumonia, unspecified organism (principal); R11.2 Nausea with vomiting, unspecified; R00.0 Tachycardia, unspecified; Z20.822 Contact with and (suspected) exposure to COVID-19; Z79.52 Long term (current) use of systemic steroids; Z79.899 Other long term (current) drug therapy
CPT/HCPCS: 71045; 71275; 74160; 80053; 81001; 83690; 84484; 85025; 85378; 93005; 96361; 96374; 96375; 99284; C9803; J2405; Q9967; U0003; U0005

== ENCOUNTER 2023-03-20 07:36 | Emergency (ER) | payer MEDICARE, SELFPAY ==
[2023-03-20 07:37] VITALS: BP 141/71; PULSE 91; RESP 18; TEMP 36.6; O2SAT 97; BMI 26.5
--- NOTE | 2023-03-20 07:44 | PC.NURSE ---
DR CORREIA AT BEDSIDE TO EVALUATE PT
--- NOTE | 2023-03-20 07:50 | HMH.EDWNDL ---
Discharge Plan Disposition Patient Disposition: Home, Self-Care Condition: Good Prescriptions Prescriptions: New cephalexin 500 mg capsule 500 mg PO TID 5 Days Qty: 15 0RF No Action doxycycline hyclate 100 mg capsule 100 mg PO BID 10 Days Qty: 20 0RF methylprednisolone [Medrol (Román)] 4 mg tablets,dose pack 4 mg PO DAILY Qty: 21 0RF ondansetron 4 mg tablet,disintegrating 4 mg PO Q8H PRN (Reason: nausea and vomiting) 4 Days Qty: 12 0RF Referrals Follow up/Referrals: Woo Stephen MD [Primary Care Provider] - See instructions Activity Restrictions/Add. Instructions Additional Instructions/Restrictions: Due to the location of the laceration being high risk for developing infection we are giving you preventative antibiotics today. Otherwise keep the area clean with soap and water daily and return to the ER for any new or worsening symptoms. Clinical Impressions Clinical Impression: Finger laceration Instructions Patient Instructions: DI for Laceration Repair Discharge ED Provider: Tahir Garcia Wound/Laceration HPI General Chief Complaint: Wound/Laceration Stated Complaint: AO [id number] ring ringer swollen,cut Time Seen by Provider: 03/20/23 07:45 Mode of Arrival: Ambulatory Limitations: No Limitations Description of Symptoms (Recalled from ER Triage Doc. by RN): PT CUT LEFT RING FINGER YESTERDAY, PRESENTS WITH REDNESS AND SWELLING. UNABLE TO REMOVE RINGS History of Present Illness HPI narrative: 47-year-old female presents with a ring stuck on her finger after cutting a laceration to the volar aspect of the ring finger on the left hand yesterday while cutting vegetables. States that this happened yesterday midday. She is having pain over the location no difficulty moving any portion of the finger. Related Data Previous Rx's Medication Instructions Recorded doxycycline hyclate 100 mg capsule 100 mg PO BID 10 days #20 caps 10/30/22 methylprednisolone 4 mg tablets in 4 mg PO DAILY #21 tabs 10/30/22 a dose pack (Medrol (Román)) ondansetron 4 mg disintegrating 4 mg PO Q8H PRN nausea and 10/30/22 tablet vomiting 4 days #12 tabs cephalexin 500 mg capsule 500 mg PO TID 5 days #15 caps 03/20/23 Allergies Allergy/AdvReac Type Severity Reaction Status Date / Time No Known Allergies Allergy Verified 10/25/21 07:31 [facility] Disclaimer: The information contained in this section may have been updated after the patient was seen, as this information can be updated by other users. Medical History No significant past medical history Family History Other No significant family history Social History Smoking Status: Current every day smoker tobacco type: cigarettes packs per day: 1 second hand exposure: No alcohol intake: never substance use type: denies use current occupational status: other Travel in the last 8 weeks: None household members: significant other and children housing: house current occupational exposures/hazards: No caffeine: Yes ROS Obtained: Yes Systems reviewed as appropriate & no additional complaints except as documented Physical Exam General General appearance: alert and in no apparent distress Head Head exam: atraumatic ENT ENT exam: Present mucous membranes moist Chest Chest inspection: Present symmetric chest wall rise Respiratory Respiratory exam: Absent respiratory distress Cardiovascular Cardiovascular exam: Present regular rate Expanded Upper Extremity Exam Left: Hand exam: Present full ROM, laceration and other (All tendon function is intact sensation is intact motor function intact laceration is clearly old and not amenable to closure at this time) Hand L/R front image: 1. laceration Neurological Exam Neurological exam: Present alert and or
[2023-03-20 08:10] VITALS: BP 127/61; PULSE 87; RESP 17; TEMP 36.6; O2SAT 97
== END 2023-03-20 08:10 | disposition home or self-care (01) ==
PROVIDERS: Emergency Provider Student in an Organized Health Care Education/Training Program; PCP Emergency Medicine
DX: S61.215A Laceration without foreign body of left ring finger without damage to nail, initial encounter (principal); S60.445A External constriction of left ring finger, initial encounter; F17.210 Nicotine dependence, cigarettes, uncomplicated; Y93.G1 Activity, food preparation and clean up; W26.0XXA Contact with knife, initial encounter; Z23 Encounter for immunization
CPT/HCPCS: 90471; 90715; 96372; 99283; 99284

== ENCOUNTER 2023-11-24 20:23 | Emergency (ER) | payer MEDICARE, SELFPAY ==
[2023-11-24 20:23] VITALS: BP 150/81; PULSE 65; RESP 16; TEMP 36.6; O2SAT 98; BMI 24.7
[2023-11-24 20:38] VITALS: BMI 24.7
[2023-11-24] MEDS: ONDANSETRON 4MG/2ML VIAL 4 MG IV (20:48)
[2023-11-24 20:49] LABS: Coronavirus 19, PCR Not Detected (NotDetected); Influenza A, PCR Not Detected (NotDetected); Influenza B, PCR Not Detected (NotDetected)
[2023-11-24] MEDS: LACTATED RINGERS 1000ML 1,000 ML 999 ML IV (20:49)
[2023-11-24 22:05] VITALS: BP 142/74; PULSE 60; RESP 16; TEMP 36.6; O2SAT 98
--- NOTE | 2023-11-25 16:49 | ED_ITS ---
Discharge Plan Disposition Patient Disposition: Home, Self-Care Condition: Good Prescriptions Prescriptions: New ondansetron 4 mg tablet,disintegrating 4 mg PO Q8H PRN (Reason: nausea and vomiting) 5 Days Qty: 10 0RF Probiotic 3 billion cell capsule 3,000 mmu cells PO DAILY Qty: 30 0RF Rx Instructions: administer with a meal Referrals Follow up/Referrals: Heraclio Astudillo DO [Primary Care Provider] - See instructions Activity Restrictions/Add. Instructions Additional Instructions/Restrictions: Please return to the emergency department if you experience any new or worsening symptoms. Clinical Impressions Clinical Impression: Enteritis Stand Alone Forms Stand Alone Forms: Work/School Release Instructions Patient Instructions: DI for Diarrhea and Traveler's Diarrhea -- Adult, DI for Diarrhea and Traveler's Diarrhea -- Child, DI for Nausea -- Adult, DI for Nausea -- Child Discharge ED Provider: Craig Javed Adult HPI General Chief complaint: Nausea/Vomiting/Diarrhea Stated complaint: vomiting, diarrhea Time Seen by Provider: 11/24/23 21:41 Mode of Arrival: Ambulatory Source of Information: Patient Limitations: No Limitations Description of Symptoms (Recalled from ER Triage Doc. by RN): pt c/o n/v/d since yesterday. pt states at work several people have had stomach bug History of Present Illness HPI narrative: Patient describes nonbloody emesis, nonbloody diarrhea, with multiple episodes today, starting over the past 24 hours, symptoms were gradual in onset and stable in course. Patient denies chronic medical issues. Denies any surgical history. Denies any dysuria or frequency. Describes associated mild generalized abdominal pain described as a cramping sensation in the setting of emesis. No allergies.. Patient has had several contacts including spouse at bedside with similar symptoms. Has been able to tolerate p.o. intake of liquids. Related Data Previous Rx's Medication Instructions Recorded lactobacillus combination no.4 3 3,000 mmu cells PO DAILY #30 caps 11/24/23 billion cell capsule (Probiotic) ondansetron 4 mg disintegrating 4 mg PO Q8H PRN nausea and 11/24/23 tablet vomiting 5 days #10 tabs Allergies Allergy/AdvReac Type Severity Reaction Status Date / Time No Known Allergies Allergy Verified 10/25/21 07:31 [facility] Disclaimer: The information contained in this section may have been updated after the jayne clemens was seen, as this information can be updated by other users. Medical History No significant past medical history Family History Other No significant family history Social History Smoking Status: Current every day smoker tobacco type: cigarettes packs per day: 1 second hand exposure: No alcohol intake: never substance use type: denies use current occupational status: other Travel in the last 8 weeks: None household members: significant other and children housing: house current occupational exposures/hazards: No caffeine: Yes ROS Obtained: Yes Systems reviewed as appropriate & no additional complaints except as documented As per HPI Physical Exam General General appearance: alert and in no apparent distress Head Head exam: atraumatic and normocephalic Eye Eye exam: Present normal appearance Neck Neck exam: Present normal inspection Chest Chest inspection: Present normal inspection and symmetric chest wall rise Respiratory Respiratory exam: Present normal lung sounds bilaterally; Absent respiratory distress Cardiovascular Cardiovascular exam: Present regular rate and normal rhythm Abdominal Exam Abdominal exam: Present soft; Absent tenderness or guarding Neurological Exam Neurological exam: Present alert and oriented X3 Psychiatric Psychiatric exam: Present normal affect and normal mood Skin Skin exam: Present warm and dry Medical Decision Making Medical Records Medical records reviewed: Yes I reviewed the patient's medical records. Wade Inquiry Pt receiving controlled substance: No Vital Signs: 11/24/23 20:23 11/24/23 22:05 Temperature 97.8 F 97.8 F Temperature Source Oral Oral Pulse Rate 60 Pulse Rate [Right] 65 Respiratory Rate 16 16 Blood Pressure 142/74 H Blood Pressure [Right Arm] 150/81 H Blood Pressure Mean [Right Arm] 104 02 Sat by Pulse Oximetry 98 Lab Data Lab Results 11/24/23 20:44: SARS-CoV-2 (PCR) Not detected, Influenza A Untype (PCR) Not detected, Influenza Type B (PCR) Not detected Orders (Tests/Meds): ED MEDICATIONS Discontinued Medications Generic Name Dose Route Start Last Admin Trade Name Freq PRN Reason Stop Dose Admin Lactated Ringer's 1,000 mls @ 999 mls/hr 11/24/23 20:39 11/24/23 20:49 Lactated Ringer's 1000 Ml Bag IV 11/24/23 21:39 999 mls/hr .Q1H1M ONE Administration Ondansetron HCl 4 mg 11/24/23 20:39 11/24/23 20:48 Ondansetron 4mg/2ml Vial IV 11/24/23 20:40 4 mg ONCE ONE Administration ORDERS Category Date Time Status Rapid PCR Covid and Flu A/B Stat Lab 11/24/23 20:44 Completed Medical Decision Narrative: Patient with history and exam per above presenting for evaluation of nausea, vomiting, diarrhea Diagnoses considered include Bacterial diarrhea, viral diarrhea, parasitic diarrhea, IBD, medication induced. Given clinical presentation, including benign abdominal exam, sick contacts with similar symptoms, and denying any chest pain with no coronary risk factors, I have a low index suspicion for any acute coronary pathology or acute abdominal surgical pathology. ED workup and treatment included: ED MEDICATIONS Discontinued Medications Generic Name Dose Route Start Last Admin Trade Name Freq PRN Reason Stop Dose Admin Lactated Ringer's 1,000 mls @ 999 mls/hr 11/24/23 20:39 11/24/23 20:49 Lactated Ringer's 1000 Ml Bag IV 11/24/23 21:39 999 mls/hr .Q1H1M ONE Administration Ondansetron HCl 4 mg 11/24/23 20:39 11/24/23 20:48 Ondansetron 4mg/2ml Vial IV 11/24/23 20:40 4 mg ONCE ONE Administration ORDERS Category Date Time Status Rapid PCR Covid and Flu A/B Stat Lab 11/24/23 20:44 Completed Labs were independently interpreted by me, significant for no acute findings Symptoms at this time are thought to be most consistent with enteritis/colitis I discussed my clinical impression with patient and answered all questions. At this time, given reassuring workup and exam, I discussed that I have a low index of suspicion for any acute pathology necessitating inpatient management. Specific return precautions were given, with understanding and agreement. Patient will follow up with primary care provider as needed. Patient was prescribed antiemetic and probiotic. Critical Care Critical Care Time Critical Care Time: No
== END 2023-11-24 22:13 | disposition home or self-care (01) ==
PROVIDERS: Emergency Provider Emergency Medicine; PCP Internal Medicine
DX: K52.9 Noninfective gastroenteritis and colitis, unspecified (principal); F17.210 Nicotine dependence, cigarettes, uncomplicated
CPT/HCPCS: 87636; 96361; 96374; 99284; J2405

== ENCOUNTER 2024-01-03 20:27 | Emergency (ER) | payer MEDICARE, SELFPAY ==
[2024-01-03 20:28] VITALS: BP 132/73; PULSE 81; RESP 16; TEMP 36.9; O2SAT 97; BMI 25.7
[2024-01-03 20:52] VITALS: BP 132/73; PULSE 81; RESP 16; TEMP 36.9; O2SAT 98
--- NOTE | 2024-01-03 21:29 | HMH.EDGENADL ---
Discharge Plan Disposition Patient Disposition: Home, Self-Care Chief Complaint: Recheck/Abnormal Lab/Rx Prescriptions Prescriptions: No Action ondansetron 4 mg tablet,disintegrating 4 mg PO Q8H PRN (Reason: nausea and vomiting) 5 Days Qty: 10 0RF Probiotic 3 billion cell capsule 3,000 mmu cells PO DAILY Qty: 30 0RF Rx Instructions: administer with a meal Referrals Follow up/Referrals: Heraclio Astudillo DO [Primary Care Provider] - See instructions Activity Restrictions/Add. Instructions Additional Instructions/Restrictions: Call your family doctor to establish care for this visit to the emergency department and schedule follow-up within 48 hours to ensure improvement. If you have any worsening of your condition or any other concerning signs or symptoms, return to the emergency department or your primary care doctor for further evaluation. You do not need to return to the emergency department with high blood pressure alone unless top number is greater than 200 or bottom numbers greater than 120. You should also return to the emergency department if you are having high blood pressure plus chest pain, shortness of breath, headaches, vision changes, or any other symptoms. Clinical Impressions Clinical Impression: Asymptomatic hypertension Stand Alone Forms Stand Alone Forms: Work/School Release Discharge ED Provider: Iván Garcia General Adult HPI General Chief complaint: Recheck/Abnormal Lab/Rx Stated complaint: [place], HBP Time Seen by Provider: 01/03/24 20:32 Mode of Arrival: Ambulatory Source of Information: Patient Limitations: No Limitations Description of Symptoms (Recalled from ER Triage Doc. by RN): pt attend a health fair at work today and blood pressure was elevated and was told to follow up. pt has no c/o. History of Present Illness HPI narrative: 48-year-old female being sent for asymptomatic hypertension. 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 They told her that she needs to be evaluated by physician prior to returning to work. Patient denies any symptoms. Related Data Previous Rx's Medication Instructions Recorded lactobacillus combination no.4 3 3,000 mmu cells PO DAILY #30 caps 11/24/23 billion cell capsule (Probiotic) ondansetron 4 mg disintegrating 4 mg PO Q8H PRN nausea and 11/24/23 tablet vomiting 5 days #10 tabs Allergies Allergy/AdvReac Type Severity Reaction Status Date / Time No Known Allergies Allergy Verified 10/25/21 07:31 [facility] Disclaimer: The information contained in this section may have been updated after the patient was seen, as this information can be updated by other users. Medical History No significant past medical history Family History Other No significant family history Social History Smoking Status: Current every day smoker tobacco type: cigarettes packs per day: 1 second hand exposure: No alcohol intake: never substance use type: denies use current occupational status: other Travel in the last 8 weeks: None household members: significant other and children housing: house current occupational exposures/hazards: No caffeine: Yes ROS Obtained: Yes All systems reviewed & no additional complaints except as documented Physical Exam General General appearance: alert and in no apparent distress Head Head exam: atraumatic and normocephalic Eye Eye exam: Present normal appearance, PERRL and EOMI ENT ENT exam: Present mucous membranes moist Neck Neck exam: Present normal inspection, full ROM and trachea midline Respiratory Respiratory exam: Absent respiratory distress, wheezes, stridor, accessory muscle use or prolonged expiratory phase Cardiovascular Cardiovascular exam: Present normal rhythm Abdominal Exam Abdominal exam: Present soft; Absent distention, tenderness, guarding, rebound or rigidity Extremities Exam Extremities exam: Absent edema Neurological Exam Neurological exam: Present alert, oriented X3, CN II-XII intact and normal gait; Absent motor sensory deficit Skin Skin exam: Present warm and dry; Absent diaphoresis or erythema Medical Decision Making Medical Records Medical records reviewed: Yes I reviewed the patient's medical records. Wade Inquiry Pt receiving controlled substance: No Wade was queried for this patient: No Vital Signs: 01/03/24 20:28 01/03/24 20:52 Temperature 98.4 F 98.4 F Temperature Source Oral Oral Pulse Rate [Right] 81 81 Respiratory Rate 16 16 Blood Pressure [Right Arm] 132/73 132/73 Blood Pressure Mean [Right Arm] 92 92 02 Sat by Pulse Oximetry 97 98 Medical Decision Narrative: 48-year-old female being sent for asymptomatic hypertension. 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 They told her that she needs to be evaluated by physician prior to returning to work. Patient denies any symptoms. On arrival, patient neurovascularly intact, no symptoms here in the emergency department. Normotensive 130/73. Nontachycardic. Cardiopulmonary exam within normal limits. Because patient not having symptoms and not hypotensive, deemed appropriate for outpatient management. Has follow-up with Dr. Rojas. Because patient at baseline without signs or symptoms of clinical decompensation, deemed appropriate for discharge. Results were relayed to patient who voiced understanding and were agreeable to outpatient management and follow up. At the time of discharge the patient was hemodynamically stable, tolerating PO, and mobilizing appropriately. Critical Care Critical Care Time Critical Care Time: No
[2024-01-03 21:39] VITALS: BP 115/70; PULSE 74; RESP 18; TEMP 36.8; O2SAT 98
== END 2024-01-03 21:41 | disposition home or self-care (01) ==
PROVIDERS: Emergency Provider Emergency Medicine; PCP Internal Medicine
DX: F17.210 Nicotine dependence, cigarettes, uncomplicated; R03.0 Elevated blood-pressure reading, without diagnosis of hypertension
CPT/HCPCS: 99282; 99283

== ENCOUNTER 2024-08-09 09:48 | Emergency (ER) | payer OTHER, MEDICARE, SELFPAY ==
[2024-08-09 10:04] VITALS: BP 148/80; PULSE 69; RESP 20; TEMP 36.8; O2SAT 98; BMI 26.2
--- NOTE | 2024-08-09 10:32 | EXP.UTC ---
Discharge Plan Disposition Patient Disposition: Home, Self-Care Condition: Good Prescriptions Prescriptions: New ondansetron 4 mg tablet,disintegrating 4 mg PO Q8H PRN (Reason: nausea and vomiting) Qty: 10 0RF Referrals Follow up/Referrals: Heraclio Astudillo DO [Primary Care Provider] - See instructions Activity Restrictions/Add. Instructions Additional Instructions/Restrictions: *Monitor Temp, Over the counter Motrin or Tylenol as directed/as needed Tylenol every 4 hours and Motrin every 6 hours (as long as your family doctor has told you that you can take it) for fever or pain. and straight to ER if unable to lower temp less than 101.0 after medication given *Warm salt water gargles may help to soothe the throat *Throat Lozenges? *Warm fluids like tea with honey may help to soothe the throat? *Sleep elevated *Humidifier/Vaporizer *Flonase 2 sprays in each nostril daily but be aware that it may take 2-3 days before you notice improvement *Bromfed may cause drowsiness. Know how it effects you (your child) before driving, caring for small child, or sending your child to school. Not other antihistamines/allergy medications while taking bromfed Your throat swab was sent for culture. Those results are typically sent to your primary care. Be sure to follow up in 2-3 days with your family doctor/primary care physician if no improvement so they can review those result and treat if necessary. If you don?t have a primary care doctor, I recommend you get one but in the mean time, you will have to return to a walk in clinic Follow up IMMEDIATELY for new or worsening symptoms or no Noticeable improvement over the next 48-72 hours. 911 for difficulty breathing or swallowing You were tested for today for COVID19 your test result should be back in the next 24 hours, you may check your results on the [facility] [facility] Clinical Impressions Clinical Impression: Viral syndrome Stand Alone Forms Stand Alone Forms: Work/School Release Instructions Patient Instructions: DI for Viral Syndrome, DI for Nausea -- Adult Print Language Print Language: Jordanian Discharge ED Provider: Morenita Dubois [facility] [place] HPI General Stated complaint: diarreah, cough, congestion, headache Mode of Arrival: Ambulatory Source of Information: Patient Time Seen by Provider: 08/09/24 10:32 Description of Symptoms (Recalled from Triage Doc. by RN): DIARRHEA STARTED YESTERDAY ON THE WAY TO WORK, VOMITING TODAY AND BODY ACHES, HEADACHE AND COUGH HEENT Symptoms (Recalled from RN notes): No Resp Symptoms (Recalled from RN notes): No Skin Symptoms (Recalled from RN notes): No MS Symptoms (Recalled from RN notes): Yes Functional Status (Recalled from RN notes): WNL History of Present Illness Provider Complaint: Patient states that she was on her way to work yesterday when she states that she started feeling achy all over, nausea and vomiting and diarrhea and this morning she was still not feeling well so she came in because she wasnt able to go to work today Related Data Previous Rx's ?Medication ?Instructions ?Recorded ondansetron 4 mg disintegrating 4 mg PO Q8H PRN nausea and 08/09/24 tablet vomiting #10 tabs Allergies Allergy/AdvReac Type Severity Reaction Status Date / Time No Known Allergies Allergy Verified 10/25/21 07:31 Worker's Comp Is this a Worker's Comp case?: No [facility] Disclaimer: The information contained in this section may have been updated after the patient was seen, as this information can be updated by other users. Medical History No significant past medical history Family History Other No significant family history Social History Smoking Status: Current every day smoker tobacco type: cigarettes packs per day: 1 second hand exposure: No alcohol intake: never substance use type: denies use current occupational status: other Travel in the last 8 weeks: None household members: significant other and children housing: house current occupational exposures/hazards: No caffeine: Yes ROS Obtained: Yes All systems reviewed & no additional complaints except as documented and Yes Systems reviewed as appropriate & no additional complaints except as documented Constitutional Constitutional: Reports system reviewed and no additional complaints, except as documented and Reports as per HPI ENT Ears, Nose, Mouth, and Throat: Reports system reviewed and no additional complaints, except as documented, Reports as per HPI and Reports nasal congestion Cardiovascular Cardiovascular: Reports system reviewed and no additional complaints, except as documented and Reports as per HPI Respiratory Respiratory: Reports system reviewed and no additional complaints, except as documented and Reports as per HPI Gastrointestinal Gastrointestingal: Reports system reviewed and no additional complaints, except as documented, as per HPI, diarrhea, nausea and vomiting Physical Exam General General appearance: alert and in no apparent distress ENT ENT exam: Present mucous membranes moist Respiratory Respiratory exam: Present normal lung sounds bilaterally; Absent respiratory distress or wheezes Cardiovascular Cardiovascular exam: Present regular rate, normal rhythm and normal heart sounds Abdominal Exam Abdominal exam: Present soft and normal bowel sounds; Absent distention or tenderness Neurological Exam Neurological exam: Present alert, oriented X3 and normal gait Medical Decision Making Medical Records Screening: Per USPSTF and CDC recommendations, given the prevalence of disease in our region, it is our hospital?s policy to screen for HIV and viral Hepatitis for all patients aged 18 and over and those with ongoing risk factors. Wade Inquiry Pt receiving controlled substance: No Wade was queried for this patient: No Vital Signs: 08/09/24 10:04 Temperature 98.2 F Temperature Source Oral Pulse Rate [Left Brachial] 69 Respiratory Rate 20 Blood Pressure [Left Arm] 148/80 H Blood Pressure Mean [Left Arm] 102 02 Sat by Pulse Oximetry 98
[2024-08-09 11:18] VITALS: BP 148/80; PULSE 69; RESP 20; TEMP 36.8
== END 2024-08-09 11:20 | disposition home or self-care (01) ==
PROVIDERS: Emergency Provider Nurse Practitioner; PCP Internal Medicine
DX: B34.9 Viral infection, unspecified (principal); R51.9 Headache, unspecified; R19.7 Diarrhea, unspecified; R05.9 Cough, unspecified; R09.81 Nasal congestion; R11.10 Vomiting, unspecified; F17.210 Nicotine dependence, cigarettes, uncomplicated
CPT/HCPCS: 87635; 99212; 99214; G0463

== ENCOUNTER 2025-04-05 17:26 | Emergency (ER) | payer OTHER, SELFPAY ==
[2025-04-05 17:36] VITALS: BP 141/84; PULSE 81; RESP 18; TEMP 36.8; O2SAT 97; BMI 24.7
[2025-04-05 17:55] LABS: Microscopic, Urine URINE MICROSCOPIC (MICROSCOPIC)
[2025-04-05 17:57] LABS: Appearance,Urine CLEAR (Clear); Bilirubin,Urine Negative (Negative); Blood, Urine Negative (Negative); Color,Urine YELLOW (Yellow); Glucose,Urine (UA) Negative (Negative); Ketones,Urine Negative (Negative); Leukocyte Esterase,Urine TRACE (Negative); Nitrate,Urine Negative (Negative); Protein,Urine Negative (Negative); Specific Gravity, Urine 1.025 (1.005-1.030)
--- NOTE | 2025-04-05 18:08 | HMH.EDGENADL ---
Discharge Plan Disposition Patient Disposition: Home, Self-Care Condition: Good Prescriptions Prescriptions: New methocarbamol 750 mg tablet 750 mg PO Q6H PRN (Reason: muscle spasm) Qty: 20 0RF prednisone 50 mg tablet 50 mg PO DAILY 5 Days Qty: 5 0RF No Action ondansetron 4 mg tablet,disintegrating 4 mg PO Q8H PRN (Reason: nausea and vomiting) Qty: 10 0RF Referrals Follow up/Referrals: Donta Kirkpatrick MD [Staff Physician] - See instructions Provider,MD Adolfo [Primary Care Provider] - See instructions Activity Restrictions/Add. Instructions Additional Instructions/Restrictions: I have sent steroids and muscle relaxer to your pharmacy. I have also referred you to pain management. Please follow-up with your PCP as you may need referral to a spinal surgeon and MRI. If you have continued persistent new or worsening signs or symptoms follow-up sooner or return to the ER as needed. Clinical Impressions Clinical Impression: DDD (degenerative disc disease), lumbosacral Qualifiers: Disc-related pain type: discogenic back pain and lower extremity pain Qualified Code(s): M51.372 - Other intervertebral disc degeneration, lumbosacral region with discogenic back pain and lower extremity pain Print Language Print Language: Czech Discharge ED Provider: Richard Dempsey General Adult HPI <ALMA DELIA Wharton - Last Filed: 04/05/25 21:13> General Chief complaint: PAIN Stated complaint: left side pain,abdominal and back Time Seen by Provider: 04/05/25 17:32 Mode of Arrival: Ambulatory Source of Information: Patient Description of Symptoms (Recalled from ER Triage Doc. by RN): Pt presents with c/o left leg pain and lower back pain. Pt has tried taking ibuprofen History of Present Illness HPI narrative: Patient presents for evaluation of left-sided low back pain and upper left lower extremity pain. Patient's symptoms began Monday that happened when she woke up in the morning. She denies any known trauma. Patient reports that it is painful at rest and a bearing weight but she is able to bear weight. She has no loss of motor or sensory. Pain radiates from left-sided lumbar area around the anterior upper left thigh into the groin but not down the leg. She denies chest pain shortness of breath fever chills hemoptysis hematochezia melena nausea vomit diarrhea. Related Data Previous Rx's ?Medication ?Instructions ?Recorded ondansetron 4 mg disintegrating 4 mg PO Q8H PRN nausea and 03/11/25 tablet vomiting #10 tabs methocarbamol 750 mg tablet 750 mg PO Q6H PRN muscle spasm #20 04/05/25 tabs prednisone 50 mg tablet 50 mg PO DAILY 5 days #5 tabs 04/05/25 Allergies Allergy/AdvReac Type Severity Reaction Status Date / Time No Known Allergies Allergy Verified 03/11/25 14:42 PFS <ALMA DELIA Wharton - Last Filed: 04/05/25 21:13> [facility] Disclaimer: The information contained in this section may have been updated after the patient was seen, as this information can be updated by other users. Medical History (Updated 04/05/25 @ 20:59 by ALMA DELIA Wharton) Nausea vomiting and diarrhea No significant past medical history Family History Other No significant family history Social History Smoking Status: Never smoker second hand exposure: No alcohol intake: never substance use type: denies use current occupational status: other Travel in the last 8 weeks?: None household members: significant other and children housing: house current occupational exposures/hazards: No caffeine: Yes Have you lived/traveled outside [place] in past 30 days?: No Contact w/someone who lives/traveled outside US past 30 days?: No Exposure to someone with infectious disease in past 14 days?: No Do you have a fever (greater than 100.4 F or 38 C)?: No Have you tested positive for COVID-19?: No Exposed to someone with COVID-19 in past 14 days?: No Do you have a sore throat?: No Do you have a cough?: No Do you have any weakness?: No Do you have any diarrhea?: No Are you experiencing any unusual bleeding?: No Do you have any muscle aches/pain?: No Do you have any abdominal pain?: No Are you experiencing loss of taste or smell?: No Other Medical History Have you received the Flu Vaccine for this season: Yes Have you received the Pneumonia Vaccine: No <ALMA DELIA Wharton - Last Filed: 04/05/25 21:13> ROS Obtained: Yes Systems reviewed as appropriate & no additional complaints except as documented Physical Exam <ALMA DELIA Wharton - Last Filed: 04/05/25 21:13> General General appearance: alert and in no apparent distress Respiratory Respiratory exam: Present normal lung sounds bilaterally Cardiovascular Cardiovascular exam: Present regular rate Neurological Exam Neurological exam: Present alert and oriented X3 Medical Decision Making <ALMA DELIA Wharton - Last Filed: 04/05/25 21:13> Medical Records Medical records reviewed: Yes I reviewed the patient's medical records. Screening: Per USPSTF and CDC recommendations, given the prevalence of disease in our region, it is our hospital?s policy to screen for HIV and viral Hepatitis for all patients aged 18 and over and those with ongoing risk factors. Wade Inquiry Pt receiving controlled substance: No Vital Signs: 04/05/25 17:36 04/05/25 21:07 Temperature 98.2 F 98.4 F Temperature Source Oral Pulse Rate 74 Pulse Rate [Right] 81 Respiratory Rate 18 20 Blood Pressure 125/75 Blood Pressure [Right Arm] 141/84 H Blood Pressure Mean [Right Arm] 103 Blood Pressure Source [Right Arm] Automatic Cuff Blood Pressure Position [Right Arm] Sitting 02 Sat by Pulse Oximetry 97 Oxygen Delivery Method Room Air Room Air Lab Data Lab results reviewed: Yes I reviewed the patient's lab results. Lab Results 04/05/25 17:36: Urine Color Yellow, Urine Appearance Clear, Urine pH 6.0, Ur Specific Cobb 1.025, Urine Protein Negative, Urine Glucose (UA) Negative, Urine Ketones Negative, Urine Blood Negative, Urine Nitrate Negative, Urine Bilirubin Negative, Urine Urobilinogen 1.0, Ur Leukocyte Esterase Trace, Urine RBC None, Urine WBC 3-5, Ur Squamous Epith Cells 10-20, Urine Bacteria Trace Orders (Tests/Meds): ED MEDICATIONS Discontinued Medications Generic Name Dose Route Start Last Admin Trade Name Freq PRN Reason Stop Dose Admin Ketorolac Tromethamine 30 mg 04/05/25 18:46 04/05/25 18:54 Ketorolac 30mg/Ml Vial IM 04/05/25 18:47 30 mg ONCE ONE Administration Methocarbamol 500 mg 04/05/25 18:43 04/05/25 18:54 Methocarbamol 500mg Tablet PO 04/05/25 18:44 500 mg ONCE ONE Administration Prednisone 60 mg 04/05/25 18:45 04/05/25 18:54 Prednisone 20mg Tab 1 mg/kg (60 mg) 05/05/25 18:44 60 mg PO Administration Q12H [facility] ORDERS Category Date Time Status CT lumbar spine wo con Stat Cat Scan 04/05/25 18:43 Completed UA [Urinalysis and Microscopic] Stat Lab 04/05/25 17:36 Completed Medical Decision Narrative: In summary patient is a 49-year-old female who presents to the emergency department for evaluation of left lumbar low back pain and radicular pain down the left leg. Patient is hemodynamically stable upon arrival, afebrile. Sickle exam is remarkable for tenderness to palpation in the lumbar sacral area but no palpable deformity. Patient does not have palpable left upper extremity pain and is neurovascular intact distally in her bilateral lower extremities but reports of significant pain with attempted to straight leg raise in the lumbar area of the left lower extremity. Patient has no saddle anesthesia no loss of motor or sensory.. Differential diagnosis includes muscle spasm versus muscle strain versus degenerative disc disease versus neurogenic claudication versus UTI. Initial workup will be conducted with CT scan lumbar spine and urinalysis. Initial interventions include Toradol Robaxin prednisone. Initial workup reviewed by me my informal interpretation of her imaging shows no acute bony abnormality but does show suggested left paracentral disc herniation with mild spinal canal stenosis. Upon repeat evaluation patient reported significant improvement after initial intervention. Given this patient is appropriate for discharge with prescriptions for Robaxin and prednisone, referral to pain management with Dr. Kirkpatrick and close follow-up with her PCP for possible referral to a spinal surgeon/MRI as an outpatient. Patient verbalized understanding agreement. <Richard Dempsey MD - Last Filed: 04/05/25 23:55> Vital Signs: 04/05/25 17:36 04/05/25 21:07 Temperature 98.2 F 98.4 F Temperature Source Oral Pulse Rate 74 Pulse Rate [Right] 81 Respiratory Rate 18 20 Blood Pressure 125/75 Blood Pressure [Right Arm] 141/84 H Blood Pressure Mean [Right Arm] 103 Blood Pressure Source [Right Arm] Automatic Cuff Blood Pressure Position [Right Arm] Sitting 02 Sat by Pulse Oximetry 97 Oxygen Delivery Method Room Air Room Air Lab Data Lab Results 04/05/25 17:36: Urine Color Yellow, Urine Appearance Clear, Urine pH 6.0, Ur Specific Cobb 1.025, Urine Protein Negative, Urine Glucose (UA) Negative, Urine Ketones Negative, Urine Blood Negative, Urine Nitrate Negative, Urine Bilirubin Negative, Urine Urobilinogen 1.0, Ur Leukocyte Esterase Trace, Urine RBC None, Urine WBC 3-5, Ur Squamous Epith Cells 10-20, Urine Bacteria Trace Orders (Tests/Meds): ED MEDICATIONS Discontinued Medications Generic Name Dose Route Start Last Admin Trade Name Emely PRN Reason Stop Dose Admin Ketorolac Tromethamine 30 mg 04/05/25 18:46 04/05/25 18:54 Ketorolac 30mg/Ml Vial IM 04/05/25 18:47 30 mg ONCE ONE Administration Methocarbamol 500 mg 04/05/25 18:43 04/05/25 18:54 Methocarbamol 500mg Tablet PO 04/05/25 18:44 500 mg ONCE ONE Administration Prednisone 60 mg 04/05/25 18:45 04/05/25 18:54 Prednisone 20mg Tab 1 mg/kg (60 mg) 05/05/25 18:44 60 mg PO Administration Q12H [facility] ORDERS Category Date Time Status CT lumbar spine wo con Stat Cat Scan 04/05/25 18:43 Completed UA [Urinalysis and Microscopic] Stat Lab 04/05/25 17:36 Completed Medical Decision Narrative: In summary patient is a 49-year-old female who presents to the emergency department for evaluation of left lumbar low back pain and radicular pain down the left leg. Patient is hemodynamically stable upon arrival, afebrile. Sickle exam is remarkable for tenderness to palpation in the lumbar sacral area but no palpable deformity. Patient does not have palpable left upper extremity pain and is neurovascular intact distally in her bilateral lower extremities but reports of significant pain with attempted to straight leg raise in the lumbar area of the left lower extremity. Patient has no saddle anesthesia no loss of motor or sensory.. Differential diagnosis includes muscle spasm versus muscle strain versus degenerative disc disease versus neurogenic claudication versus UTI. Initial workup will be conducted with CT scan lumbar spine and urinalysis. Initial interventions include Toradol Robaxin prednisone. Initial workup reviewed by me my informal interpretation of her imaging shows no acute bony abnormality but does show suggested left paracentral disc herniation with mild spinal canal stenosis. Upon repeat evaluation patient reported significant improvement after initial intervention. Given this patient is appropriate for discharge with prescriptions for Robaxin and prednisone, referral to pain management with Dr. Kirkpatrick and close follow-up with her PCP for possible referral to a spinal surgeon/MRI as an outpatient. Patient verbalized understanding agreement. I was consulted by the ELISHA, and we discussed the complexity of the problems being addressed. I approved the treatment and management plan for this patient's care in the emergency department, thus performing a substantive portion of the medical decision making. Richard Dempsey MD Critical Care <ALMA DELIA Wharton - Last Filed: 04/05/25 21:13> Critical Care Time Critical Care Time: No
[2025-04-05 18:12] LABS: Bacteria,Urine Trace /lpf
--- NOTE | 2025-04-05 18:43 | CT_ITS ---
PROCEDURE INFORMATION: Exam: CT Lumbar Spine Without Contrast Exam date and time: 04/05/2025 6:47 PM Age: 49 years old Clinical indication: Pain; Lumbago with sciatica; Left; Additional info: Radicular pain left leg TECHNIQUE: Imaging protocol: Computed tomography of the lumbar spine without contrast. Radiation optimization: All CT scans at this facility use at least one of these dose optimization techniques: automated exposure control; mA and/or kV adjustment per patient size (includes targeted exams where dose is matched to clinical indication); or iterative reconstruction. COMPARISON: CT ABDOMEN W CON 10/01/2022 09:31 FINDINGS: Bones/joints: Left paracentral disc herniation at L2-L3 producing [id number] spinal stenosis without significant interval change. Appendix: Unremarkable appendix. Vasculature: The arteries demonstrate mild atherosclerotic disease. Soft tissues: Unremarkable. IMPRESSION: 1. Left paracentral disc herniation at L2-L3 producing [id number] spinal stenosis without significant interval change. 2. No acute fracture or malalignment of the lumbar spine.
[2025-04-05] MEDS: METHOCARBAMOL 500MG TABLET 500 MG PO (18:54)
[2025-04-05] MEDS: predniSONE 20MG TAB 60 MG PO (18:54)
[2025-04-05] MEDS: KETOROLAC 30MG/ML VIAL 30 MG IM (18:54)
[2025-04-05 21:07] VITALS: BP 125/75; PULSE 74; RESP 20; TEMP 36.9; O2SAT 97
== END 2025-04-05 21:11 | disposition home or self-care (01) ==
PROVIDERS: Emergency Provider Emergency Medicine
DX: M51.372 Other intervertebral disc degeneration, lumbosacral region with discogenic back pain and lower extremity pain (principal); M54.59 Other low back pain
CPT/HCPCS: 72131; 81001; 96372; 99284; J1885

== ENCOUNTER 2025-04-10 09:18 | Outpatient (CLI) | payer OTHER, SELFPAY ==
[2025-04-10 18:21] LABS: Basophils # 0.1 K/mm3 (0-0.2); Basophils % 0.4 % (0.1-2.0); Eosinophils # 0.1 Kmm3 (0.0-0.4); Eosinophils % 0.9 % (0.1-12.0); Hematocrit 41.1 % (37.0-47.0); Hemoglobin 13.2 g/dL (12.2-16.2); Immature Granulocytes # 0.08 10^3uL; Immature Granulocytes % 0.6 %; Lymphocytes # 2.1 K/mm3 (0.7-4.5); Lymphocytes % 16.3 % (10-50); Mean Corpuscular HGB Conc 32.1 g/dL (31.8-35.4); Mean Corpuscular Hemoglobin 28.4 pg (27.0-31.2); Mean Corpuscular Volume 88.6 fl (81-99); Mean Platelet Volume 10.4 fl (7.4-10.4); Monocytes # 0.8 K/mm3 (0.1-1.0); Neutrophils # 9.6 K/mm3 (1.8-7.8); Neutrophils % 75.8 % (37.0-80.0); Nucleated Red Blood Cells # 0 10^3/uL; Nucleated Red Blood Cells % 0 %; Platelet Count 327 K/mm3 (142-424); Red Blood Count 4.64 M/mm3 (4.20-5.40); Red Cell Distribution Width 12.8 % (11.5-17.5); Red Cell Distribution Width-SD 41.2 fL; White Blood Count 12.6 K/mm3 (4.8-10.8)
[2025-04-10 18:40] LABS: Hemoglobin A1C 5.4 % (4.0-6.0)
[2025-04-10 19:15] LABS: Alanine Aminotransferase 20 U/L (12-78); Albumin Level 4.1 g/dl (3.5-5.0); Albumin/Globulin Ratio 1.8 (1.1-1.8); Alkaline Phosphatase 91 U/L (38-126); Anion Gap 11.8 mEq/L (5-15); Aspartate Amino Transferase 22 U/L (14-36); Bilirubin,Total 0.5 mg/dl (0.2-1.3); Blood Urea Nitrogen 23 mg/dl (7-17); Calcium 9.5 mg/dl (8.4-10.2); Carbon Dioxide 28 mmol/L (22.0-30.0); Chloride 103 mmol/L (98-107); Chol/HDL Ratio 2.4 (1-3.5); Cholesterol 142 mg/dl (140-200); Estimated Glomerular Filt Rate 76 ml/min (>60); GFR (African American) 92 ML/MIN (>60); Globulin 2.3 g/dL (1.3-3.2); Glucose 105 mg/dl (74-100); HDL Cholesterol 60 mg/dl (40-60); Potassium 3.8 mmoL/L (3.5-5.1); Sodium 139 mmol/L (136-145); Total Protein,Serum 6.4 g/dl (6.3-8.2); Triglycerides 183 mg/dl (30-150); VLDL Cholesterol 37 mg/dL (0-40)
[2025-04-10 19:26] LABS: Direct LDL Cholesterol 56.04 mg/dL (100-129)
[2025-04-10 19:30] LABS: 25-OH Vitamin D, Total 30.2 ng/mL (30-100)
[2025-04-10 19:46] LABS: Thyroid Stimulating Hormone 1.44 uIU/mL (0.465-4.68)
== END 2025-04-10 23:59 | disposition home or self-care (01) ==
LOC: LAB.DROPOF 23:01
PROVIDERS: PCP Family Medicine; Visit Provider Family Medicine
DX: Z76.89 Persons encountering health services in other specified circumstances (principal)
CPT/HCPCS: 80053; 80061; 82306; 83036; 84443; 85025

== ENCOUNTER 2025-04-21 13:57 | Outpatient (POV) | payer OTHER, SELFPAY ==
[2025-04-21 14:25] VITALS: BP 112/77; PULSE 73; RESP 18; O2SAT 95; BMI 26.5
--- NOTE | 2025-04-21 16:28 | EXP.PAIN.OV ---
HPI Data of Consult Patient: new to practice Consult date: 04/21/25 Requesting Physician: Carly Seay APRN Primary Care Provider: Aneta Cohen APRN Reason for consult: Left-sided low back pain, left hip pain History of present illness: Ms. Hyatt is a 49 year old female who presents today as a new patient. She has a referral from Aneta Cohen's office. Today she rates her pain a 5 out of 10. Patient states that she has had longstanding low back pain for at least 5 years. Patient states this was unrelated to any specific injury or trauma. Patient states that she feels like it is just continuously progressing. Patient states that the left side is worse than the right and she frequently feels pain in her left hip and left groin. Patient states that it is severe and recently ended up going to the ER because she could not even get herself dressed. Patient states she feels like it was a pulled groin muscle almost and that they did prescribe her methocarbamol and that has helped some. Patient states that it is worse with prolonged positioning such as sitting or standing and even laying down is very painful. Patient states she has trouble going up and down stairs and that the pain is just interfering with her ability perform activities of daily living such as cooking and cleaning. Patient states that that office did send her for referral to [facility] however she is really not wanting to proceed forward with any surgeries at this time however she has not yet had this appointment. She has tried Tylenol along with heating pad, topicals with minimal relief. Patient states occasionally she will use ibuprofen. Patient is very active and states that she does do at home stretching exercise on a daily basis however has not really noticed any significant relief. Patient denies any surgery or injection history. She does state that when she went to the ER they did also give her a steroid pack and that seemed to help a little bit. Her Wade has been reviewed and is appropriate. Pain at rest (0-10 scale): 5 Has patient had previous pain injection?: No Conservative treatment options previously tried: NSAIDS (Longer than 12 weeks) and Home exercise plan (Longer than 12 weeks) cc:: CC: Carly Seay APRN [facility] Disclaimer: The information contained in this section may have been updated after the patient was seen, as this information can be updated by other users. Medical History (Updated 04/21/25 @ 16:32 by Carly Seay APRN) Laceration of skin of forehead without complication Pyelonephritis Pyelonephritis Gastroenteritis Viral syndrome Exposure to COVID-19 virus Viral syndrome Pneumonia Encounter for laboratory testing for COVID-19 virus Finger laceration Nausea vomiting and diarrhea Asymptomatic hypertension Enteritis No significant past medical history Family History Father Heart attack Hypertension Stroke Degenerative disc disease Mother Cancer Heart attack Stroke Hypertension Other No significant family history Social History (Updated 04/21/25 @ 14:26 by Debbie Baldwin, SONIA) Smoking Status: Current every day smoker tobacco type: e-cigarettes second hand exposure: No alcohol intake: never substance use type: denies use current occupational status: other Travel in the last 8 weeks?: None household members: significant other and children housing: house marital status: number of children: 4 current occupational exposures/hazards: No caffeine: Yes Review of Systems Review of Systems Review of systems:: pertinent systems reviewed and negative unless documented below Review of systems (narrative): Review of Systems: General: No recent weight changes, no fever, no sleep disturbances Respiratory: No cough, no shortness of air, no recurring pulmonary infections Cardiovascular/peripheral vascular: No chest pain, no palpitations, no edema, no shortness of breath Gastrointestinal: No new onset incontinence, normal bowel movements reported Genitourinary: No new onset incontinence Musculoskeletal: Low back pain left-sided, left hip, left groin pain Psychiatric: [Normal mood/affect] Neurological: [Denies weakness in extremities], [denies balance issues] Meds Home Medications and Allergies Home Medications ?Medication ?Instructions ?Recorded ?Confirmed ?Type methocarbamol 750 mg tablet 750 mg PO Q6H PRN muscle spasm #30 04/10/25 04/21/25 Rx tabs New Prescriptions to Start Prescriptions: Allergies Allergy/AdvReac Type Severity Reaction Status Date / Time milk Allergy Mild Hives Verified 04/10/25 08:39 Objective Vital signs: Pulse Resp BP Pulse Ox O2 Del Method 73 18 112/77 95 Room Air 04/21/25 14:25 04/21/25 14:25 04/21/25 14:25 04/21/25 14:25 04/21/25 14:25 Narrative: Physical Exam: General: Alert and oriented x3, no acute distress, pleasant and cooperative Lungs: Respirations even and unlabored, symmetrical chest expansion Eyes: PERRL Musculoskeletal: Flexion and extension of lumbar [spine] somewhat guarded secondary to pain, [antalgic gait noted] point tenderness along left SI and left greater trochanteric bursa with positive left Anum's, Madisyn's, Gaenslen's, compression and distraction exam Neurological: Speech clear, no gross sensory deficit Assessment and Plan *Assessment and plan (1) Sacroiliitis: Status: Acute Category: Medical Code(s): M46.1 - Sacroiliitis, not elsewhere classified (2) Greater trochanteric bursitis of left hip: Status: Acute Category: Medical Code(s): M70.62 - Trochanteric bursitis, left hip Plan Patient is experiencing worsening pain along her low back and left hip with limited range of motion. Patient did have point tenderness along her left SI and left greater trochanteric bursa during today's exam. I did discuss with patient that I do believe she would benefit from a left SI and left greater trochanteric bursa injection. Risk and benefits were discussed with the patient and she would like to proceed forward with this plan of care. Patient has had this pain for longer than 5 years unrelieved with conservative measures such as oral medication, heat and ice, topicals, at home stretching exercise for longer than 12 weeks. Patient was counseled that if she does end up getting significant relief with her initial SI injection that we will plan on additional in future with the possibility of her being a potential candidate of a SI fusion in future. This will be a diagnostic SI injection with less than 1 mL of solution to be injected. Patient will be scheduled for a left SI and left bursa injection under fluoroscopy. I will also order the patient a compounded cream. Patient has been instructed to contact the clinic with any concerns before the next appointment. Dr. Kirkpatrick has reviewed this note and agrees with this plan of care. This note was dictated using voice recognition software and make contain errors or omissions. All injections are used with Lidocaine, Bupivacaine and dexamethasone unless diagnostic in which case there is no steroids injected. Occasionally urine drug screen is needed to verify patient's compliance with our office pain contract. This is ordered based off specific treatments related to chronic pain with the potential to abuse certain medications.
== END 2025-04-21 23:59 | disposition home or self-care (01) ==
LOC: SC.PAIN 13:58
PROVIDERS: PCP Family Medicine; Visit Provider Nurse Practitioner Family
DX: M46.1 Sacroiliitis, not elsewhere classified (principal); M70.62 Trochanteric bursitis, left hip; Z79.1 Long term (current) use of non-steroidal anti-inflammatories (NSAID)
CPT/HCPCS: 99202; G0463

== ENCOUNTER 2025-05-05 13:00 | Outpatient (RCR) | payer OTHER, SELFPAY ==
--- NOTE | 2025-04-24 07:48 | HMH.PTOPEV ---
PT Outpatient Evaluation Rehab PT Outpatient Evaluation Start: 04/22/25 14:00 Freq: Status: Active Protocol: Document 04/22/25 14:01 JALIL (Rec: 04/22/25 14:53 JALIL [id number]) E-signed By Annalisa Redmond, PT Outpatient Therapy Subjective History Subjective History This is an initial PT evaluation for 49 y/o, Li Hyatt, who presents with referral for lumbar disc hernia, DDD, and spinal stenosis. Pt reports her LBP has been bothering her for a few years. Pt recently has had a worsening in her pain with radiating pain ~ 2 weeks ago that made her go to the hospital. Pt received steroids and muscle relaxers. Pt reports she is doing better but still has her baseline LBP. Pt does report some LLE radiating pain. Pt reports more pain on left side of leg and back. Pt reports muscle relaxers and heat/ice help relieve her symptoms. Pt goes to get injections on the . Pt also has complaints of chronic neck pain. Chief complaint: LBP-mid back with radiating pain. CT lumbar 04/05/25: Left paracentral disc herniation at L2-L3 producing [id number] spinal stenosis without significant interval change. No acute fracture or malalignment of the lumbar spine. New diagnosis of No cancer in past 12 months? Chief Complaint Pain,Stiff Symptom Type Ache,Shooting Symptoms Relieved By Rest/Positioning,Heat,Ice,OTC Meds,Prescription Meds Symptoms Aggravated Sitting,Standing,Bending/Stooping,Physical Activity, By Twisting,Walking,Lifting Prior Functional None Limitations Current Functional Lifting,Driving,Standing,Recreation Activity,Walking, Limitations Stairs Symptom Description Constant but Variable Level of pain today 5 (0-10) Pain scale - at its 5 best (0-10) Pain scale - at its 10 worst (0-10) Lumbopelvic Eval Posture Thoracic Spine Neutral Posture Standing Position Lumbar Spine Posture Neutral Standing Position Assistive device Assistive Devices None / NA Gait Observation General Gait Pattern Antalgic Gait Observation Palapation tenderness right thoracic spinal No tenderness lumbar spinal Yes: 1/4 tenderness paraspinal Yes: 1/4 tenderness buttock tenderness No Lumbar/Sacral Tenderness Palpation Findings left thoracic spinal Yes: 2/4 tenderness lumbar spinal Yes: 2/4 tenderness paraspinal Yes: 2/4 tenderness buttock tenderness Yes: 3/4 Lumbar/Sacral Tenderness Palpation Findings Accessory Movement L2 bilateral L3 bilateral L4 bilateral L5 bilateral S1 bilateral Range of Motion Lumbar Spine Active 50%, pain Flexion Range of Motion (degrees) Lumbar Spine Active 50%, pain Extension Range of Motion (degrees) Left Lumbar Spine 25%, pain Lateral Flexion Active Range of Motion (degrees) Right Lumbar Spine 25%, pain Lateral Flexion Active Range of Motion (degrees) Lumbar Spine ROM Pain Limitations Manual Muscle Test Bilateral Knee Extension 4- Good- Strength Grade Knee Flexion 4- Good- Strength Grade Hip Flexion Strength 3+ Fair+ Grade Hip Abduction 3+ Fair+ Strength Grade Hip Adduction 3+ Fair+ Strength Grade Altered Sensation Comment BLE intact to light touch Special Tests Lumbar Spine Screen Positive Hip Scouring ( Positive Left,Positive Right Quadrant) Test Hip Get (NEHA) Positive Left,Positive Right Test Hip Piriformis Test Positive Left,Positive Right Sciatic Nerve Negative Right,Positive Left Tension Test Unilateral Straight Negative Right,Positive Left Leg Raise (Lasegue) Test Bilateral Straight Positive Leg Raise Test Crossed Straight Leg Negative Left,Negative Right Raise Test Sacroiliac Joint Positive Left,Positive Right Compression Test Sacroiliac Joint Positive Left,Positive Right Distraction Test Lumbar Long [place] Increased pain but also relieving Distraction Test/ Manual Traction Oswestry Index Section 1 Pain Intensity The pain comes and goes and is moderate Section 2 Personal Care ( my way of washing or dressing even though it causes Washing,Dresing) some pain Section 3 Lifting I can lift heavy weights, but it gives me extra pain Section 4 Walking I cannot walk more than 1/2 mile without increasing pain Section 5 Sitting Pain prevents me from sitting for more than 10 minutes Section 6 Standing I cannot stand more than 10 minutes without increasing pain Section 7 Sleeping Because of my pain, my normal night's sleep is less than 4 hours Section 8 Social Life Pain has no significant effect on my social life apart from limiting Section 9 Traveling Pain restricts me to short necessary journeys under 30 minutes Section 10 Changing Degreee of My pain is neither getting better or worse Pain Score and Risk Level Oswestry Sc 27 Oswestry Risk Level Severe Disability Miscellaneous Dx PT Eval Objective Objective Cluster of [place]: 03/24 + for SIJ pain/dysfunction. 1) compression: + 2) distraction: + 3) thigh thrust: + 4) sacral thrust: + 5) Gaenslen's: + Outpatient Therapy Assessment Impairments Problems/ Palpation Tenderness,Impaired Range of Motion,Impaired Impairmments Strength,Impaired Endurance,Impaired Transfers,Impaired Gait Pattern,Impaired Walking,Impaired Standing, Impaired Lifting,Impaired Dressing,Impaired Household Care,Impaired Stair Climbing,Impaired Stepping on Uneven Surface,Impaired Squatting,Impaired Bending, Impaired Recreational Activities,Impaired Work Activities,Subjective C/O Pain Prognosis Rehab Potential Good Comment Pt presents with chronic LBP with an acute exacerbation of radiating pain. Pt presents with impaired LB AROM, impaired BLE strength, and subjective reports of pain. Pt would benefit from skilled OP PT to address deficits and decrease pain. Clinical Impression Consistent with Yes Diagnosis Short Term Goals Number of Weeks 4 Decreased Palpation Yes: Decrease LB paraspinal TTP to 1/4 Tenderness Increase Range of Yes: Increase LB AROM to at least 75% to improve Motion function Increase Strength Yes: Improve BLE MMT by 1/5 grade to improve function Improve Oswestry Yes: Improve by 2 points since IE. Score Decrease Subjective Yes: Report a 48 hour pain average of 4/10 (worst, best C/O Pain , current) Patient to be Ind w/ Yes HEP [facility] Goals Number of Weeks 8 Decreased Palpation Yes: 0/4 TTP B lumbar paraspinals and L piriformis Tenderness Increase Range of Yes: Increase LB AROM 100% in all planes to maximize Motion functional AROM. Increase Strength Yes: BLE 5/5 MMT to maximize strength Increase Ability to Yes: 20 minutes without increase in LBP Walk Improve Oswestry Yes: Improve to score reflecting mild disability to Score improve QOL. Decrease Subjective Yes: Report a 48 hour pain average of 2/10 (worst, best C/O Pain , current) Patient to be Ind w/ Yes: Verbalize adherence to HEP HEP Outpatient Therapy Plan of Care Treatment Plan May Include Therapeutic Exercise Yes Including Home Exercise Program Manual Therapy Yes Techniques Neuromuscular Re- Yes education Therapeutic Yes Activities to Return to Previous Functional/Work Level Gait Training Yes ADL/Self Care Yes Education Mechanical Traction Yes Dry Needling Yes Thermal Modalities Yes Electrical Yes Stimulation Ultrasound/ Yes Phonophoresis Iontophoresis Yes Orthotics/Bracing/ Yes Splinting Eval/Re-Eval Yes Aquatic Therapy Yes Frequency Times per week 2-3 times Duration Number of Weeks 6-8 weeks Addendums This patient is a No candidate for social or vocational rehab ? Patient/Guardian Yes verbally acknowledges understanding of treatment program and consents to further treatment? Patient/Guardian Yes verbally acknowledges understanding of diagnosis, prognosis and goals for treatment? Eval Complexity PT Charges 34007 - Moderate Complexity Shoulder/Elbow Eval Shoulder Objective Measurements Elbow Objective Measurements PHYSICIAN CERTIFICATION: I certify the specified therapy services for Li Hyatt are required, authorized, and reviewed every 30 days.
== END 2025-05-05 23:59 | disposition home or self-care (01) ==
LOC: PT 13:00
PROVIDERS: Visit Provider Family Medicine
DX: M48.00 Spinal stenosis, site unspecified (principal); M51.372 Other intervertebral disc degeneration, lumbosacral region with discogenic back pain and lower extremity pain
CPT/HCPCS: 97110; 97162; 97530

== ENCOUNTER 2025-05-13 08:40 | Day surgery (SDC) | payer OTHER, SELFPAY ==
[2025-05-13 08:49] VITALS: BP 115/71; PULSE 64; RESP 16; O2SAT 96; BMI 26.4
[2025-05-13] MEDS: BUPIVACAINE 0.25% 10ML INJ 25 MG IJ (09:09)
[2025-05-13] MEDS: LIDOCAINE 1% 5ML PF VIAL 5 ML (09:09)
[2025-05-13] MEDS: DEXAMETHASONE 10MG/ML 1ML VIAL 10 MG (09:09)
[2025-05-13 09:10] VITALS: BP 110/77; PULSE 68; RESP 18; O2SAT 97
[2025-05-13 09:11] VITALS: BP 110/77; PULSE 68; RESP 18; O2SAT 97
[2025-05-13 09:13] VITALS: BP 112/76; PULSE 67; RESP 18; O2SAT 97
--- NOTE | 2025-05-13 09:16 | P.PCN_ITS ---
Procedure Date: 05/13/25 Time: 09:10 Anesthesiologist:: Get Guzman CRNA Complications:: None Pre-procedure Diagnosis:: Left sacroiliitis. Left trochanteric bursitis. Post-procedure Diagnosis:: Same. Indications for Procedure:: Patient is a pleasant 49-year-old female who comes our clinic today for a left trochanteric bursa injection of cortisone local anesthetic. Also, left sacroiliac joint injection of local anesthetic for diagnostic purpose. Patient describes left lumbar back pain as constant, dull, aching. Also, she reports left posterior hip pain is constant, dull, aching. Upon evaluation patient has extreme point tenderness over the left sacroiliac joint as well as the left trochanteric bursa area. She rates her pain 7/10. Procedure Details:: Procedure: Left sacroiliac injection under fluoroscopy Informed consent was obtained and the risk and benefits of the procedure were explained to the patient.~ The patient was taken to the procedure room and noninvasive monitors were placed including noninvasive blood pressure cuff and pulse oximeter.~ The patient was placed prone on the procedure table.~ The~ left hip was cleansed using Betadine as a cleansing solution.~ C-arm fluorosocpy was used to view the left SI joint.~ The skin and subcutaneous tissues were anesthetized using Lidocaine 1.5% and a 25-gauge needle.~ After this, a 22-gauge spinal needle was inserted under fluoroscopic guidance into the inferior aspect of the left SI joint.~ Omnipaque dye was injected and a good spread was seen throughout the joint.~ After this, approximately 5 mL of bupivacaine 0.25% was incrementally injected into the sacroiliac joint.~ The patient tolerated the procedure well with no complications.~ The patient was observed in the Pain Clinic for a period of 30-45 minutes, then discharged home neurologically intact.~ Procedure:Left trochanteric bursa injection under fluoroscopy We then moved to the left trochanteric bursa.~ C-arm fluoroscopy was used to view the left greater trochanter.~ The skin and subcutaneous tissues overlying the left greater trochanter were anesthetized using lidocaine, 1.5% and a 25- gauge needle.~ After this, a 22-gauge spinal needle was inserted and advanced until it contacted the left greater trochanter.~ Dye was injected and good spread was seen throughout the left trochanteric bursa. After this, approximately 5 mL of bupivacaine, 0.25% and Depo-Medrol, 40 mg was incrementally injected into the left trochanteric bursa.~ The patient tolerated the procedure well with no complications. Plan and Disposition:: Patient was discharged without incident.
== END 2025-05-13 09:13 | disposition home or self-care (01) ==
PROVIDERS: PCP Family Medicine; Visit Provider Nurse Anesthetist, Certified Registered
DX: M46.1 Sacroiliitis, not elsewhere classified (principal); M70.62 Trochanteric bursitis, left hip; I10 Essential (primary) hypertension; F17.290 Nicotine dependence, other tobacco product, uncomplicated; Z79.899 Other long term (current) drug therapy
CPT/HCPCS: 20610; 27096; 77002; J0665; J1100; J2003

== ENCOUNTER 2025-05-28 13:43 | Outpatient (POV) | payer OTHER, SELFPAY ==
--- OUTSIDE RECORDS SUMMARY | 2025-05-28 13:45 | XMS_ITS | Encounter Summary ---
Author Organization Healthcare Address [address] [place] [address] Care Team Providers Care Milk House Worker Name Role Phone Unavailable Primary Care Provider Unavailabl e Encounter Details Date Type Department Care Team ([facility] st Contact Info) Description 04/28/2025 Telephone Medical Office Building Surgery Spine & Joint [address], [address] [place] [address] Augusta Mckeon, PA [address] [place] [address] Social History Tobacco Use Types Packs/Day Years Used Date Smoking Tobacco: Never Assessed Comments Unknown Sex and Gender Information Value Date Recorded Sex Assigned at Not on file Legal Sex Female 10:33 PM EDT Gender Identity Not on file Sexual Orientation Not on file documented as of this encounter Miscellaneous Notes * Telephone Encounter - Toña Knight - 04/28/2025 3:56 PM EDT FAXED APPT 05/16/25 8A ROZ MANNING/RYANN PEREZ documented in this encounter Plan of Treatment Not on file documented as of this encounter Visit Diagnoses Not on filedocumented in this encounter
--- OUTSIDE RECORDS SUMMARY | 2025-05-28 13:45 | XMS_ITS | Encounter Summary ---
Author Organization Healthcare Address [address] [place] [address] Care Team Providers Care Clinical Unit Educator Name Role Phone Unavailable Primary Care Provider Unavailabl e Encounter Details Date Type Department Care Team ([facility] st Contact Info) Description 04/28/2025 Telephone Medical Office Building Surgery Sp[facility] [address], [address] [place] [address] Augusta Mckeon, ALMA DELIA [address] [place] [address] Social History Tobacco Use Types Packs/Day Years Used Date Smoking Tobacco: Never Assessed Comments Unknown Sex and Gender Information Value Date Recorded Sex Assigned at Not on file Legal Sex Female 10:33 PM EDT Gender Identity Not on file Sexual Orientation Not on file documented as of this encounter Miscellaneous Notes * Telephone Encounter - Toña Knight - 04/28/2025 3:52 PM EDT CALL PLACED, ACCEPTED 05/16/25 8A ROZ PEREZ documented in this encounter Plan of Treatment Not on file documented as of this encounter Visit Diagnoses Not on filedocumented in this encounter
--- OUTSIDE RECORDS SUMMARY | 2025-05-28 13:45 | XMS_ITS | Clinical Summary ---
Author Organization [facility] Address [address] [place] [address] Care Team Providers Care Coverer Name Role Phone Aneta Cohen APRN Primary Care Provider [phone] Encounters Date Type Department Care Team Description 04/28/2025 Telephone Medical Office Building Surgery Sp[facility] [address] [facility], [address] [place] [address] Augusta Mckeon PA 04/28/2025 Telephone Medical Office Building Surgery [facility] [address], [address] [place] [address] Augusta Mckeon PA from Last 3 Months Immunizations Immunization Administration Dates Next Due Tdap 11/06/2020 Social History Tobacco Use Types Packs/Day Years Used Date Smoking Tobacco: Never Assessed Comments Unknown Sex and Gender Information Value Date Recorded Sex Assigned at Not on file Legal Sex Female 10:33 PM EDT Gender Identity Not on file Sexual Orientation Not on file Plan of Treatment Health Maintenance Due Date Last Done Comments [facility]-Depression Screening 1973 [facility]-/Child/Adol SDOH Screenings 1973 [facility]- SDOH Screenings 1991 [facility]-Adult SDOH Screenings 1991 [facility]-Hepatitis B Vaccines (1 of 3 - 19+ 3-dose series) 1992 [facility]-Pap Smear 1994 [facility]-Cervical Cancer Screening 2003 [facility]-HPV/Cotest 2003 CT Colonography 2018 Colonoscopy 2018 FIT-DNA 2018 FIT 2018 FOBT 2018 Sigmoidoscopy 2018 [facility]-Colorectal Cancer Screening 2018 [facility]-Pneumococcal Vaccine: 50 + Years (1 of 1 - PCV) 2023 [facility]-Zoster Vaccines (1 of 2) 2023 [id number] Vaccine (1 - 20 24-25 season) 2024 [facility]-Influenza Vaccine (#1) 2025 [facility]-DTaP,Tdap,and Td Vaccine s (2 - Td or Tdap) 11/06/2030 11/06/2020 HPV Vaccines Aged Out No longer eligi ble based on patient's age to complete this topic [facility]-HIB Vaccines Aged Out No longer e ligible based on patient's age to complete this topic [facility]-Hepatitis A Vaccines Aged Out No longer eligible based on patient's age to complete this topic [facility]-IPV Vaccines Aged Out No longer e ligible based on patient's age to complete this topic [facility]-Rotavirus Vaccines Aged Out No lo nger eligible based on patient's age to complete this topic Insurance [facility] MEDICARE Care Teams Coverer Relationship Specialty Start Date End Date Aneta Cohen APRN [address] [place] [address] PCP - General 04/29/25
--- NOTE | 2025-05-28 13:54 | EXP.PAIN.SOA ---
[facility] Disclaimer: The information contained in this section may have been updated after the patient was seen, as this information can be updated by other users. Medical History Laceration of skin of forehead without complication Pyelonephritis Pyelonephritis Gastroenteritis Viral syndrome Exposure to COVID-19 virus Viral syndrome Pneumonia Encounter for laboratory testing for COVID-19 virus Finger laceration Nausea vomiting and diarrhea Asymptomatic hypertension Enteritis No significant past medical history Family History Father Heart attack Hypertension Stroke Degenerative disc disease Mother Cancer Heart attack Stroke Hypertension Pulmonary embolism, blood-clot, obstetric Other No significant family history Social History Smoking Status: Current every day smoker tobacco type: e-cigarettes second hand exposure: No alcohol intake: never substance use type: denies use current occupational status: other Travel in the last 8 weeks?: None household members: significant other and children housing: house marital status: number of children: 4 current occupational exposures/hazards: No caffeine: Yes PM Subjective & Objective Subjective Subjective:: Patient is a pleasant 49-year-old female who presents today for follow-up of her left bursa and left SI injection on 05/13/2025. Today she rates her pain a 3 out of 10 in that location. She states she had at least 80% improvement and feels like this is working wonderful in combination with the compounded cream. She denies any side effects. Patient does state that she has now noticed a little bit more pain at the back of her head and base of her neck that she had not noticed previously. Patient rates this at least a 5 out of 10. Patient states she has had neck pain in the past longer than 6 months to a year ago however the low back was always the worst and so she focused more on yet. She does state the pain is worse turning her head [id number] and she does have very limited range of motion. She does describe it as a pressure sensation with soreness and aching. Patient does state that pain is interfering with her ability to perform activities of daily living such as cooking and cleaning. Patient is interested if there is something we can do for this pain. Patient denies any other changes from our visit. Her Wade has been reviewed and is appropriate. Injections: Left SI and left bursa 05/13/2025-80% improvement Review of Systems: General: No recent weight changes, no fever, no sleep disturbances Respiratory: No cough, no shortness of air, no recurring pulmonary infections Cardiovascular/peripheral vascular: No chest pain, no palpitations, no edema, no shortness of breath Gastrointestinal: No new onset incontinence, normal bowel movements reported Genitourinary: No new onset incontinence Musculoskeletal: Neck pain Psychiatric: [Normal mood/affect] Neurological: [Denies weakness in extremities], [denies balance issues] Pain at rest (0-10 scale): 3 Objective Objective:: Physical Exam: General: Alert and oriented x3, no acute distress, pleasant and cooperative Lungs: Respirations even and unlabored, symmetrical chest expansion Eyes: PERRL Musculoskeletal: Flexion and extension of cervical [spine] somewhat guarded secondary to pain, positive Kemps test Neurological: Speech clear, no gross sensory deficit Has patient had previous pain injection?: Yes Percent improvement in pain since last injection: 80% Conservative treatment options previously tried: Home exercise plan Length of treatment: Longer than 12 weeks Meds Home Medications and Allergies Home Medications ?Medication ?Instructions ?Recorded ?Confirmed ?Type methocarbamol 750 mg tablet 750 mg PO Q6H PRN muscle spasm #30 04/10/25 05/13/25 Rx tabs New Prescriptions to Start Prescriptions: Allergies Allergy/AdvReac Type Severity Reaction Status Date / Time milk Allergy Mild Hives Verified 05/12/25 08:44 Assessment and Plan *Assessment and plan (1) Facet arthropathy, cervical: Status: Acute Category: Medical Code(s): M47.812 - Spondylosis without myelopathy or radiculopathy, cervical region (2) Neck pain: Status: Acute Category: Medical Code(s): M54.2 - Cervicalgia Plan Patient has had significant improvement following her SI and bursa injection and does not need any additional injection therapy at that location however she is experiencing worsening pain with limited range of motion in her neck and a positive Kemps test. I did discuss with the patient that she does have symptoms consistent with cervical facet arthropathy and that I do believe she would benefit from a cervical medial branch block. Risk and benefits were discussed with the patient and she would like to proceed forward with this plan of care. Patient does state that she has had the neck pain for at least 6 months if not a year unrelated to any specific trauma or injury. Patient has tried oral medication, heat and ice, topicals, at home stretching exercise for longer than 12 weeks. Patient will be scheduled for a cervical medial branch block bilaterally C4-C5 and C5-C6 under fluoroscopy. Patient denies any blood thinners. If she does have significant relief with her first diagnostic injection we will proceed forward with her second 1 with the plan to proceed forward with a cervical RFA at a later date. Patient agrees with this plan of care. Patient has been instructed to contact the clinic with any concerns before the next appointment. Dr. Kirkpatrick has reviewed this note and agrees with this plan of care. This note was dictated using voice recognition software and make contain errors or omissions. All injections are used with Lidocaine, Bupivacaine and dexamethasone. Occasionally urine drug screen is needed to verify patient's compliance with our office pain contract. This is ordered based off specific treatments related to chronic pain with the potential to abuse certain medications.
[2025-05-28 14:03] VITALS: BP 136/71; PULSE 79; RESP 14; O2SAT 98; BMI 25.7
== END 2025-05-28 23:59 | disposition home or self-care (01) ==
LOC: SC.PAIN 13:44
PROVIDERS: PCP Family Medicine; Visit Provider Nurse Practitioner Family
DX: M47.812 Spondylosis without myelopathy or radiculopathy, cervical region (principal)
CPT/HCPCS: 99212; G0463

== ENCOUNTER 2025-11-10 20:48 | Emergency (ER) | payer OTHER, SELFPAY ==
--- NOTE | 2025-11-10 20:57 | ED_ITS ---
<Statement entered by Bere Cortes DO - 11/11/25 01:07> I was consulted by the ELISHA, and we discussed the complexity of problems being addressed. I approve the treatment and management plan for this patient's care in the emergency department, thus performing a substantial portion of the medical decision making. Bere Cortes DO Discharge Plan Disposition Patient Disposition: Home, Self-Care Condition: Good Prescriptions Prescriptions: New ondansetron 4 mg tablet,disintegrating 4 mg PO Q6H PRN (Reason: nausea and vomiting) Qty: 10 0RF No Action promethazine 12.5 mg tablet 12.5 mg PO TID PRN (Reason: nausea and vomiting) Qty: 10 0RF Referrals Follow up/Referrals: Aneta Cohen APRN [Primary Care Provider, Family Practice] - See instructions Activity Restrictions/Add. Instructions Additional Instructions/Restrictions: Please return to the emergency department with any worsening signs or symptoms, I recommend progressing diet as tolerated, good intake with solids and fluids, please utilize Zofran as needed for nausea and vomiting. Please follow-up with your PCP in the upcoming days/weeks. Clinical Impressions Clinical Impression: Nausea vomiting and diarrhea Print Language Print Language: Bengali Discharge ED Provider: Bere Cortes General Adult HPI General Chief complaint: Nausea/Vomiting/Diarrhea Stated complaint: V/D feels bad all over Time Seen by Provider: 11/10/25 20:52 Mode of Arrival: Ambulatory Source of Information: Patient, Spouse and Medical Record Limitations: No Limitations History of Present Illness HPI narrative: 50-year-old female presents to the emergency department accompanied by her significant other for a 24-hour history of nausea vomiting diarrhea, denies any fever chills chest pain shortness of breath cough congestion, denies any overt abdominal pain, denies any hematuria melena hematochezia hematemesis or hemoptysis, diarrhea is nonbloody nonbilious, patient is a non-smoker denies any alcohol or drug use, other past medical history is consistent with degenerative disc disease of the lower lumbar spine, otherwise no real relevant past medical history takes no other medications at home. Of note, grandchildren had similar symptomatology a few days ago and both patient and spouse were exposed. Initial triage vitals are unremarkable. Also of note, patient tells me I really need a work note for today as I work at [employer] and they will not let me go to work with the symptoms . Patient also has been utilizing Zofran with some relief of her symptomatology able to tolerate p.o. intake when utilizing Zofran. Please note that above description of symptoms, in this electronic medical record under categorization of recalled from ER triage doctor by RN are reflective of an initial nursing assessment, however, is not reflective of my full history and physical exam that was personally taken and clarified. Consequentially, this preceding description of symptoms, which may include the patient's categorized chief complaint in the EMR, do not reflect my personal clinical impression, and the ultimate description of history of present illness and patient stated complaints should be deferred to this section of the note. Unless stated otherwise or congruent with this section of the note, additional signs, symptoms, or incongruence should be interpreted as inaccurate with my clinical impression. Onset (ago): hour(s) Related Data Previous Rx's ?Medication ?Instructions ?Recorded promethazine 12.5 mg tablet 12.5 mg PO TID PRN nausea and 09/25/25 vomiting #10 tabs ondansetron 4 mg disintegrating 4 mg PO Q6H PRN nausea and 11/10/25 tablet vomiting #10 tabs Allergies Allergy/AdvReac Type Severity Reaction Status Date / Time milk Allergy Mild Hives Verified 09/25/25 19:02 [facility] Disclaimer: The information contained in this section may have been updated after the patient was seen, as this information can be updated by other users. Medical History Laceration of skin of forehead without complication Pyelonephritis Pyelonephritis Gastroenteritis Viral syndrome Exposure to COVID-19 virus Viral syndrome Pneumonia Encounter for laboratory testing for COVID-19 virus Finger laceration Nausea vomiting and diarrhea Asymptomatic hypertension Enteritis No significant past medical history Family History Father Heart attack Hypertension Stroke Degenerative disc disease Mother Cancer Heart attack Stroke Hypertension Pulmonary embolism, blood-clot, obstetric Other No significant family history Social History Smoking Status: Never smoker second hand exposure: No alcohol intake: never substance use type: denies use current occupational status: other Travel in the last 8 weeks?: None household members: significant other and children housing: house marital status: number of children: 4 current occupational exposures/hazards: No caffeine: Yes Have you lived/traveled outside [place] in past 30 days?: No Contact w/someone who lives/traveled outside US past 30 days?: No Exposure to someone with infectious disease in past 14 days?: No Do you have a fever (greater than 100.4 F or 38 C)?: No Have you tested positive for COVID-19?: No Exposed to someone with COVID-19 in past 14 days?: No Do you have a sore throat?: No Do you have a cough?: No Do you have any weakness?: No Do you have any diarrhea?: No Are you experiencing any unusual bleeding?: No Do you have any muscle aches/pain?: No Do you have any abdominal pain?: No Are you experiencing loss of taste or smell?: No Other Medical History Have you received the Flu Vaccine for this season: No Have you received the Pneumonia Vaccine: No ROS Obtained: Yes All systems reviewed & no additional complaints except as documented Physical Exam General General appearance: alert and in no apparent distress Head Head exam: atraumatic and normocephalic Eye Eye exam: Present PERRL and EOMI ENT ENT exam: Present mucous membranes moist Neck Neck exam: Present normal inspection Chest Chest inspection: Present normal inspection and symmetric chest wall rise Respiratory Respiratory exam: Present normal lung sounds bilaterally; Absent respiratory distress Cardiovascular Cardiovascular exam: Present regular rate and normal rhythm Abdominal Exam Abdominal exam: Present soft; Absent tenderness, guarding, rebound or rigidity Extremities Exam Extremities exam: Present normal inspection Neurological Exam Neurological exam: Present alert and oriented X3 Psychiatric Psychiatric exam: Present normal affect Skin Skin exam: Present warm and dry Medical Decision Making Medical Records Medical records reviewed: Yes I reviewed the patient's medical records. Screening: Per USPSTF and CDC recommendations, given the prevalence of disease in our region, it is our hospital?s policy to screen for HIV and viral Hepatitis for all patients aged 18 and over and those with ongoing risk factors. Wade Inquiry Pt receiving controlled substance: No Wade was queried for this patient: No Vital Signs: 11/10/25 21:04 Temperature 98.2 F Temperature Source Oral Pulse Rate [Right Radial] 79 Respiratory Rate 20 Blood Pressure [Right Arm] 154/89 H Blood Pressure Mean [Right Arm] 110 Blood Pressure Source [Right Arm] Automatic Cuff Blood Pressure Position [Right Arm] Sitting 02 Sat by Pulse Oximetry 99 Oxygen Delivery Method Room Air Orders (Tests/Meds): ORDERS Category Date Time Status Mini Respiratory Panel Stat Lab 11/10/25 21:12 Ordered Medical Decision Narrative: 50-year-old female presents to the emergency department with nausea vomiting diarrhea for the last 24 hours, differential diagnose include but not limited to, gastroenteritis, colitis, acute URI, viral syndrome among others. I discussed this patient's case with the attending physician Dr. Sebastian Granado respiratory swab was obtained via nursing staff triage. I offered basic laboratory studies, to the patient and family at bedside, patient family would like to pursue less invasive studies, would like to pursue rapid antigen swabs. Shared decision making was utilized I believe this appropriate as patient is nontoxic-appearing, patient tells me really I am here for a work note , will also attempt p.o. challenge here in the emergency department with p.o. liquids. Patient and family are in agreement with current discharge plan/treatment plan. Will prescribe the patient 4 mg p.o. sublingual Zofran to utilize as needed for nausea and vomiting, most likely syndrome/gastroenteritis, as symptoms have only been ongoing for 24 hours with grandchildren having similar symptoms, patient able to tolerate p.o. intake. Patient and family given strict ED return precautions. Patient and family voiced understanding and agreement with the current treatment plan/discharge plan. Critical Care Critical Care Time Critical Care Time: No
--- OUTSIDE RECORDS SUMMARY | 2025-11-10 21:00 | XMS_ITS | Clinical Summary ---
Author Organization [facility] Address [address] [place] [address] Care Team Providers Care Transportation Supervisor Name Role Phone Aneta Cohen APRN Primary Care Provider [phone] Immunizations Immunization Administration Dates Next Due Tdap [...] Date Last Done Comments [facility]-Depression Screening 1973 [facility]-Infant/Child/Adol SDOH Screenings 1973 [facility]- SDOH Screenings 1991 [...] 2023 [facility]-Zoster Vaccines (1 of 2) 2023 [id number] Vaccine (1 - 20 25-26 season) 2025 [facility]-Influenza Vaccine (#1) 2025 [facility]-DTaP,Tdap,and Td Vaccine s (2 - Td or Tdap) 11/06/2030 11/06/2020 HPV Vaccines (No Doses Required) Completed [facility]-HIB Vaccines Aged Out No longer e [...] patient's age to complete this topic Insurance [facility] [place] [phone] Care Teams Transportation Supervisor Relationship Specialty Start Date End Date Aneta Cohen APRN [address] [place] [id number] PCP - General 04/29/25
[2025-11-10 21:04] VITALS: BP 154/89; PULSE 79; RESP 20; TEMP 36.8; O2SAT 99; BMI 24.6
[2025-11-10 21:28] VITALS: BP 154/89; PULSE 79; RESP 20; TEMP 36.8; O2SAT 98
[2025-11-10 21:28] LABS: Coronavirus 19, PCR Not Detected (NotDetected); Influenza A, PCR Not Detected (NotDetected); Influenza B, PCR Not Detected (NotDetected)
--- NOTE | 2025-11-10 21:43 | PC.NURSE ---
patient asked for work note for yesterday and today. patient notified that we cannot provide work excuses for the day prior unless they were seen in the Emergency department. patient provided with work excuse for today and good to return tomorrow. patient requested to speak to provider. provider Jesus Arcos PA-C at bedside now.
== END 2025-11-10 21:48 | disposition home or self-care (01) ==
PROVIDERS: Emergency Provider Student in an Organized Health Care Education/Training Program; PCP Family Medicine
DX: R11.2 Nausea with vomiting, unspecified (principal); R19.7 Diarrhea, unspecified
CPT/HCPCS: 87631; 99283